=== PATIENT | female | born 1960 | race Caucasian/White ===

== ENCOUNTER → 2018-06-11 | Outpatient (CLI) | payer OTHER, SELFPAY ==
--- NOTE | 2018-06-11 14:02 | BD_ITS ---
STUDY: DUAL ENERGY X-RAY ABSORPTIOMETRY / DXA REASON FOR EXAM: Female, 57 years old. The patient is postmenopausal. Loss of height. TECHNIQUE: Bone Mineral Density (BMD) measurements of lumbar spine and bilateral hips were obtained. COMPARISON: Comparison is made with prior examination dated April 02, 2013. FINDINGS: Lumbar Spine (L1-L4): g/cm2 (0.749) / T-score (-3.8) / Z-score (-2.6) Findings are suggestive of osteoporosis with a high fracture risk. Increased thoracic kyphosis. Left Femur Total: g/cm2 (0.855) / T-score (-1.2) / Z-score (-0.3) Left Femoral Neck: g/cm2 (0.787) / T-score (-1.8) / Z-score (-0.6) Right Femur Total: g/cm2 (0.773) / T-score (-1.9) / Z-score (-1.0) Right Femoral Neck: g/cm2 (0.761) / T-score (-2.0) / Z-score (-0.8) The T-Scores on the most recent prior examination were: Lumbar Spine (L1-L4): There has been improvement of bone density since the previous examination. Left Femur Total: which represents an improvement of 7.8%. Right Femur Total: which represents no significant change. . BD/Dexa Bone Density Study IMPRESSION: The patient is considered osteoporotic as outlined below according to World Devyn Organization (WHO) criteria with a high fracture risk. There has been improvement of bone density since the previous examination. Reference Information: The T-score is the number of standard deviations above or below the standard which is normal for young adults at their peak bone mineral density. The World Health Organization (WHO) interprets the T-scores as follows: Above -1 Normal bone density Between -1 and -2.5 Osteopenia Equal to / or below -2.5 Osteoporosis As a practical clinical guideline, osteopenia may be graded as follows: Mild -1 through -1.5 Moderate -1.6 through -2.0 Severe -2.1 through -2.4 The Z-score is the number of standard deviations above or below age-matched controls. A Z-score of less than -1.5 would be considered abnormal. References: 1. NIH Osteoporosis and Related Bone Diseases http://www.osteo.org 2. International Society for Clinical Densitometry http://www.iscd.org 3. National Osteoporosis Foundation http://www.nof.org Electronically Signed: Adebayo Card, at 14:51 EDT , Service support ,
== END | disposition home or self-care (01) ==
PROVIDERS: Family Provider Family Medicine; PCP Family Medicine; Referring Provider Family Medicine; Visit Provider Family Medicine
DX: M81.0 Age-related osteoporosis without current pathological fracture (principal)
CPT/HCPCS: 77080

== ENCOUNTER → 2018-06-28 | Outpatient (CLI) | payer OTHER, SELFPAY ==
--- NOTE | 2018-06-28 14:34 | BI_ITS ---
MAMMOGRAPHY - BILATERAL SCREENING REASON FOR EXAM: Female, 57 years old. Routine annual screening examination. PERTINENT HISTORY: Mother with breast cancer. TECHNIQUE: Digital bilateral breast murray (3D mammographic acquisition) in the CC and MLO projections. 2-D mediolateral oblique (MLO) and craniocaudad (CC) views of both breasts were obtained. CAD: Full Field Digital Mammography with Computer Added Detection was performed. COMPARISON: Comparison is made with prior study dated April 02, 2013. FINDINGS: Breast Composition: The breasts are heterogeneously dense, which may obscure small masses. There are no dominant masses or suspicious calcifications. No other significant abnormalities are identified. There has been no significant change since the prior study. BI/SCREENING MAMM (CAD), BILAT IMPRESSION: Stable bilateral screening mammogram. Yearly follow-up mammogram recommended. (A) ASSESSMENT CATEGORY: BIRADS Category 1: Negative. A letter regarding these results will be sent to the patient by the facility within 30 days. Approximately 10% of breast cancers are not detected by mammography. A normal mammogram should not delay biopsy of a clinically suspicious abnormality. [id number] Electronically Signed: Adebayo Card, at 8:26 EDT , Service support ,
== END | disposition home or self-care (01) ==
LOC: OPBI 14:32
PROVIDERS: Family Provider Family Medicine; PCP Family Medicine; Referring Provider Family Medicine; Visit Provider Family Medicine
DX: Z12.31 Encounter for screening mammogram for malignant neoplasm of breast (principal)
CPT/HCPCS: 77063; 77067

== ENCOUNTER → 2019-04-18 13:59 | Outpatient (CLI) | payer OTHER, SELFPAY ==
[2019-04-22 17:14] LABS: HPV APTIMA, High Risk Negative (Negative)
== END ==
PROVIDERS: PCP Family Medicine; Visit Provider Obstetrics & Gynecology
DX: Z12.4 Encounter for screening for malignant neoplasm of cervix (principal)
CPT/HCPCS: 87624; 88175; G0145

== ENCOUNTER 2019-11-14 09:00 | Outpatient (RCR) | payer OTHER, SELFPAY ==
[2019-10-21 15:09] VITALS: BMI 23.0
--- NOTE | 2019-11-03 08:29 | HP.PTEVAL_ITS ---
Patient's Visit Information ISRA JAVED is a 58 year old F referred to Physical Therapy by Dr. Thelma Raymundo DC with a diagnosis of Pain in Thoracic spine Wedge compression fx T9- T10. Date of Evaluation: 10/28/19 Physical Therapist: Gabe Zavala DPT - Visit Plan Frequency: 1-2x /Week Duration: 4 Weeks Plan: Start with DN to levator scap, L UT, L mid trap, L lats and L pec minor. Add in levator scap stretching, scpaular strengthening/re education exercises. - Subjective Pt. is here today for her initial evaluation with diagnosis of Pain in thoracic spine, wedge compression fx of T9-T10. Pt. has been complaining of increased pain in L shoulder when she moves her arm certain ways, ie lifting away from her body while laying in bed on her R side. Pt. reports reaching behind her is painful as well. Pt. did see the chiropractor who was able to do some adjustments, but felt like Dry needling might be appropriate to her levator scapulae musculature. Pt. appears to be most concerned about her L shoulder/arm pain. She denies N/T, but does have some pain that radiates to lateral proximal arm. Pt. reports no weakness, but it like catches when I move is certain ways. Pt. reports no mech of injury and has been having pain for a few months now, but has become more intense recently. Pt. is hopeful to reduce her symptoms in order to complete all daily and recreational activities without limitations. - Pain L side of thoracic spine Pain Intensity (Out of 10): 2 Pain Intensity Range: 0, 4 L shoulder Pain Intensity (Out of 10): 2 Pain Intensity Range: 0, 4 L scapular region Pain Intensity (Out of 10): 2 Pain Intensity Range: 0, 4 - Objective POSTURE: Pt. has sligth rounded thoracic spine. Sligth FH posture. Pt. is able to correct with VC/TCing. PALPATION: Pt. has tenderness along mid boarder to L scapulea, L levator, L UT. No pain at subacromial space. No pain throughout cervical spine. NEURO: pt. has normal sensation and normal DTR of BUEs. ROM: CERVICAL SPINE: full ROM without increase in symptoms. L shoulder- flexion- full no issues, abd full no issues, functional ER/IR full no issues. Pt. did have incresed pain with extension and abduction (increased scapular adduction). MMT: Pt. had good strength throughout BUEs, except pain and mild weakness 4/5 with supraspinatus. 5/5 cervical iso. - Special Tests C/S Radiculapathy - Left Spurlings: Negative C/S Radiculapathy - Right Spurlings: Negative C/S Radiculapathy - Left Cervical distraction: Negative C/S Radiculapathy - Right Cervical distraction: Negative C/S Radiculapathy - Left Relief test: Negative C/S Radiculapathy - Right Relief test: Negative Cervical Sitting: Protrusion - Mechanical Response: No effect Cervical Sitting: Protrusion - Symptoms During Testing: No effect Cervical Sitting: Protrusion - Symptoms After Testing: No effect Cervical Sitting: Retraction - Mechanical Response: No effect Cervical Sitting: Retraction - Symptoms During Testing: No effect Cervical Sitting: Retraction - Symptoms After Testing: No effect Cervical Sitting: Retraction-Extension - Mechanical Response: No effect Cerv Sitting: Retraction-Extension - Symptoms During Testing: No effect Cerv Sitting: Retraction-Extension - Symptoms After Testing: No effect Cervical Sitting: Sidebend Right - Mechanical Response: No effect Cervical Sitting: Sidebend Right - Symptoms During Testing: No effect Cervical Sitting: Sidebend Right - Symptoms After Testing: No effect Cervical Sitting: Sidebend Left - Mechanical Response: No effect Cervical Sitting: Sidebend Left - Symptoms During Testing: No effect Cervical Sitting: Sidebend Left - Symptoms After Testing: No effect Cervical Sitting: Rotation Right - Mechanical Response: No effect Cervical Sitting: Rotation Right - Symptoms During Testing: No effect Cervical Sitting: Rotation Right - Symptoms After Testing: No effect Cervical Sitting: Rotation Left - Mechanical Response: No effect Cervical Sitting: Rotation Left - Symptoms During Testing: No effect Cervical Sitting: Rotation Left - Symptoms After Testing: No effect Cervical Sitting: Flexion - Mechanical Response: No effect Cervical Sitting: Flexion - Symptoms During Testing: No effect Cervical Sitting: Flexion - Symptoms After Testing: No effect Thoracic Sitting: Flexion - Mechanical Response: No effect Thoracic Sitting: Flexion - Symptoms During Testing: No effect Thoracic Sitting: Flexion - Symptoms After Testing: No effect Thoracic Sitting: Extension - Mechanical Response: No effect Thoracic Sitting: Extension - Symptoms During Testing: Increases Thoracic Sitting: Extension - Symptoms After Testing: No worse Thoracic Sitting: Right Rotation - Symptoms During Testing: No effect Thoracic Sitting: Right Rotation - Symptoms After Testing: No effect Thoracic Sitting: Left rotation - Mechanical Response: No effect Thoracic Sitting: Left Rotation - Symptoms During Testing: No effect Thoracic Sitting: Left Rotation - Symptoms After Testing: No effect L Shoulder Supine Impingement Test - RC Tear: Negative L Shoulder Lift Off Test - Subscapular Tear: Negative L Shoulder Drop Sign - IS Test: Negative L Shoulder Empty Can - SS: Positive L Shoulder Belly Press - SupScap: Negative L Shoulder Neer - Impingement: Negative L Shoulder Carrero Javier - Impingement: Negative L Shoulder Biceps Load Test - Labrum: Negative - Goals Goal 1:: LTG: Pt. to be I with HEP. Goal Time Frame: 4-6 Weeks Goal 2:: STG: Pt. to sleep on R side and be able to move L arm without increase in symptoms. Goal Time Frame: 2-4 Weeks Goal 3:: LTG: Pt. to have increased L supraspinatus strength increased to 5/5. Goal Time Frame: 4-6 Weeks Goal 4:: STG: Pt. to have no pain at rest. Goal Time Frame: 2-4 Weeks - Rehabilitation Potential Physical Therapy Diagnosis: Pt. has signs and symptoms consistent with scapular region pain. Pt. has pain/tightness noted throughout levator scapulea, mid trap and upper trap. Pt. also has tightness with her L lat and pec minor. Pt. did have marked trigger point/muscle spasm at levator scapulea at well. Pt. would benefit from PT with DN to focus on scpaular mobility, tissue tension reduction and scapular strenthening/re education. Rehabilitation Potential: Good - Anticipated Interventions Patient/Client Instruction: Educate patient on: Condition, Plan of Care, Risk Factors, Benefits of Fitness Program For the Purpose of:: To improve decision making, To facilitate caregiver knowledge, To improve self management, To prevent re-injury, To improve ability to perform tasks related to life management, To improve tolerance to ADL's Therapeutic Exercise to Include: Strength training, Power training, Postural training, Flexibilty training, via [employer] Balance Mas, Active ROM, Scapular Strength/Stabilization For the Purpose of:: To decrease pain, To decrease swelling/inflammation, To increase ROM, To improve nutrient delivery to tissue, To increase oxygenation perfusion, To improve muscle performance and motor function, To improve ability to perform ADL's, To increase tolerance to activity/condition/position Manual Therapy Techniques to Include: Mobilization, Manipulation, Passive ROM, Functional dry needling, Soft tissue mobilization For the Purpose of:: To decrease pain, To decrease swelling/inflammation, To increase ROM, To improve nutrient delivery to tissue, To increase oxygenation perfusion, To improve muscle performance and motor function Thank you for the opportunity to evaluate your patient. For Medicare and Medicare HMO plans, please review the plan of care and approve it. It will need to be FAXED BACK to us at [phone] for Medicare purposes. For Medicare only, by signing this I certify the plan of care. Please let me know if there are questions or concerns regarding this plan of care. Physician Signature: Date:
== END 2019-11-14 19:00 | disposition home or self-care (01) ==
LOC: PT 09:00
PROVIDERS: PCP Family Medicine; Referring Provider Chiropractor; Visit Provider Chiropractor
DX: M99.02 Segmental and somatic dysfunction of thoracic region (principal); S22.070D Wedge compression fracture of T9-T10 vertebra, subsequent encounter for fracture with routine healing
CPT/HCPCS: 97110; 97140; 97161

== ENCOUNTER → 2019-11-25 13:39 | Outpatient (CLI) | payer OTHER, SELFPAY ==
[2019-10-21 15:09] VITALS: BMI 23.0
== END ==
PROVIDERS: PCP Family Medicine; Referring Provider Family Medicine; Visit Provider Nurse Practitioner Adult Health
DX: Z20.828 Contact with and (suspected) exposure to other viral communicable diseases (principal)
CPT/HCPCS: 87635; U0003

== ENCOUNTER → 2020-02-19 08:11 | Outpatient (CLI) | payer OTHER, SELFPAY ==
[2019-10-21 15:09] VITALS: BMI 23.0
--- NOTE | 2020-02-19 08:13 | BI_ITS ---
MAMMOGRAPHY - BILATERAL SCREENING REASON FOR EXAM: Female, 59 years old. Routine annual screening examination. PERTINENT HISTORY: Mother with breast cancer. TECHNIQUE: Digital bilateral breast lorraine (3D mammographic acquisition) in the CC and MLO projections. 2-D mediolateral oblique (MLO) and craniocaudad (CC) views of both breasts were obtained. CAD: Full Field Digital Mammography with Computer Added Detection was performed. COMPARISON: Comparison is made with prior study dated 06/28/2018 and 04/02/2013. FINDINGS: Breast Composition: The breasts are heterogeneously dense, which may obscure small masses. There are no dominant masses or suspicious calcifications. Stable small benign-appearing bilateral axillary lymph nodes. No other significant abnormalities are identified. There has been no significant change since the prior study. BI/SCREEN MAMM (CAD) W/LORRAINE BILAT IMPRESSION: Stable bilateral screening mammogram. Yearly follow-up mammogram recommended. (A) ASSESSMENT CATEGORY: BIRADS Category 2: Benign. A letter regarding these results will be sent to the patient by the facility within 30 days. Approximately 10% of breast cancers are not detected by mammography. A normal mammogram should not delay biopsy of a clinically suspicious abnormality. [id number] Electronically Signed: Adebayo Card, at 9:14 EST , Service support ,
== END ==
PROVIDERS: PCP Family Medicine; Referring Provider Obstetrics & Gynecology; Visit Provider Obstetrics & Gynecology
DX: Z12.31 Encounter for screening mammogram for malignant neoplasm of breast (principal)
CPT/HCPCS: 77063; 77067

== ENCOUNTER 2021-06-13 16:00 | Outpatient (RCR) | payer OTHER, SELFPAY ==
--- NOTE | 2021-05-18 12:00 | HP.PTEVAL ---
Patient's Visit Information ISRA JAVED is a 60 year old F referred to Physical Therapy by RAMO ARAUJO with a diagnosis of L shoulder calcific tendonitis.. Date of Evaluation: 05/18/21 Physical Therapist: Floyd Yusuf, DPT, OCS, CSCS - Visit Plan Frequency: 3x /Week Duration: 4-6 Weeks Plan: 3x/week for 3-6 weeks for. 1. US nonthermal L supra insert. 2. mobs arm traction for pain. 3. ensure strengthening going wella t home(phase 3 given today with activitiy modification for impingement). 4. Do ionto with acetic acid each session -please - Subjective Lshoulder pain for 5 years consistently and worsening. X rays show calcification in tendon(supraspinatus). Doctor recommended shockwave therapy and microsurgery. Advil one time per week. Seeing doctor Breanne. Has had therapy in the past and does exercise for strengthening. It hurts with certain movements like reaching OH to take shirt off. Behind back is good and out to side is good. Lifting arm up front with thumb down hurts. Reaching out in front hurts. Painfree at rest. Sleeping will wake her up if she rolls L side or right side. 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 [place]ies [place] farm, Able to do most things on farm with modifications and care. - Pain L shoulder Pain Intensity (Out of 10): 0 Pain Intensity Range: 0, 8 - Objective Walks and trasnfers I without evidence of pain. Full neck ROM without pain, - c/s compression test. Tender to palpation with L supra insert moderately. Full UE AROM B and only some discomfort with thumb down flexion L. ER/IR are not painful and full on L. + HK, + neer, - drop arm, - ext rotation lag test. reflexes 2/3 bi and tri. Sensation UE WNL to gross light touch. Strength is 4/5 B UE except L ER and empty can which are 4- and some slight pain. Posture is forward head and protracted scap B. - Balance/Special Test Scores Quick DASH Score: 13.6350 - Goals Goal 1:: Patient feel pain 80% improved to 1/10 at worst. Goal Time Frame: 4-6 Weeks Goal 2:: Able to empty can and resist ext rot L without pain Goal Time Frame: 4-6 Weeks Goal 3:: Quickdash score 12 or better Goal Time Frame: 4-6 Weeks - Rehabilitation Potential Physical Therapy Diagnosis: L shoulder clacific tendoinits Rehabilitation Potential: Fair - Anticipated Interventions Patient/Client Instruction: Educate patient on: Condition, Plan of Care For the Purpose of:: To decrease pain, To decrease swelling/inflammation, To improve muscle performance and motor function, To increase tolerance to activity/condition/position Therapeutic Exercise to Include: Strength training, Postural training For the Purpose of:: To decrease pain, To improve muscle performance and motor function Manual Therapy Techniques to Include: Mobilization, Soft tissue mobilization For the Purpose of:: To decrease pain, To increase oxygenation perfusion Iontophoresis (with Dexamethozone, with Acetic acid): Yes - acetic acid For the Purpose of:: To decrease pain, To decrease swelling/inflammation Thank you for the opportunity to evaluate your patient. For Medicare and Medicare HMO plans, please review the plan of care and approve it. It will need to be FAXED BACK to us at [phone] for Medicare purposes. For Medicare only, by signing this I certify the plan of care. Please let me know if there are questions or concerns regarding this plan of care. Physician Signature: Date:
--- NOTE | 2021-06-13 16:17 | HP.PTDCSUM ---
It has been my pleasure to treat ISRA JAVED referred by RAMO ARAUJO, with the diagnosis of L shoulder calcific tendonitis. for a total of 11 visit(s). Discharge Date: Please see the following information for a summary of their discharge status. Subjective: Patient reports that she feels that her shoulder is 70% better. She does not have a constant pain and it doesn't consistently wake her up at night. L shoulder Pain Intensity (Out of 10): 0 % Improvement: 70 Objective/Function: Posture: good throughout treatment session- mild winging of the scapula. Gait: no deviation noted- good arm swing and trunk rotation. Palpation: not tender to touch. ROM: WFL in all planes no pain at end ranges- does report stuck with abduction return to neutral. Strength is 4+/5 B UE Goal 1:: Patient feel pain 80% improved to 1/10 at worst. Goal Progress: Progressing Goal 2:: Able to empty can and resist ext rot L without pain Goal Progress: Goal Met Goal 3:: Quickdash score 12 or better Goal Progress: Goal Met Plan: Discharge to [facility] If there are questions or concerns regarding this patient's physical therapy, please feel free to call me at [phone]. Thank you for the referral of this patient. Sincerely, Kiera Carson, LEIGHT Balance/Gait/Functional tests - Balance/Special Test Scores Quick DASH Score: 6.8175
== END 2021-06-13 19:00 | disposition home or self-care (01) ==
LOC: PT 16:00
PROVIDERS: PCP Family Medicine
DX: M75.32 Calcific tendinitis of left shoulder (principal)
CPT/HCPCS: 97035; 97110; 97161; 97164

== ENCOUNTER → 2022-07-28 | Outpatient (CLI) | payer OTHER, SELFPAY ==
[2022-07-28 17:57] LABS: Absolute Lymphocyte Count 1.08 X10^3/uL (0.83-4.51); Absolute Neutrophil Count 4.2 X10^3/uL (2.0-7.7); Basophil# 0.05 X10^3/uL; Basophil% 0.9 % (0-1); Eosinophil# 0.09 X10^3/uL; Eosinophils% 1.5 % (0-5); Hematocrit 40.4 % (37-47); Hemoglobin 13.1 g/dL (12.0-15.0); Lymphocyte # 1.08 X10^3/ul (0.83-4.51); Lymphocyte % 18.5 % (19-41); Mean Corp Hgb Conc 32.4 g/dL (32-36); Mean Corpuscular Hgb 30.4 pg (27.0-32.0); Mean Corpuscular Volume 93.7 fL (81-99); Mean Platelet Vol. 10.5 fl (6.2-12.0); Monocyte% 6.8 % (0-10); NRBC Flagged by Analyzer 0 % (0-5); Neutrophil # 4.22 X10^3/uL (2.7-7.7); Neutrophil % 72.1 % (47-70); Platelet Count 257 K/mm3 (150-450); RBC Distribution Width CV 12.7 % (11.6-14.6); Red Blood Count 4.31 M/mm3 (4.2-5.4); White Blood Count 5.9 K/mm3 (4.4-11.0)
[2022-07-28 18:42] LABS: Anion Gap 6 (5-15); BUN 19 mg/dL (7-18); BUN/Creat Ratio 28.8 RATIO (10-20); Calcium,Total 9.1 mg/dL (8.5-10.1); Chloride 106 mmol/L (98-107); Creatinine, Serum 0.66 mg/dL (0.55-1.02); EST Glomerular Filtration Rate 96 mL/min (>60); Est Glom Filt Rate - Afr Amer 116 mL/min (>60); Glucose 97 mg/dL (74-106); Potassium 4.4 mmol/L (3.5-5.1); Sodium Level 141 mmol/L (136-145); Thyroid Stim Hormone (TSH) 2.13 uIU/mL (0.358-3.74)
== END | disposition home or self-care (01) ==
LOC: MFPLAB 15:46
PROVIDERS: PCP Family Medicine; Visit Provider Family Medicine
DX: R53.83 Other fatigue (principal)
CPT/HCPCS: 36415; 80048; 84443; 85025

== ENCOUNTER → 2023-01-22 | Outpatient (CLI) | payer OTHER, SELFPAY ==
--- NOTE | 2023-01-22 13:31 | RAD_ITS ---
STUDY: X-RAY - RIGHT KNEE REASON FOR EXAM: Female, 62 years old. Pain following a recent injury. TECHNIQUE: 3 view(s) of the knee. COMPARISON: None. FINDINGS: Normal visualized distal femur. Normal visualized proximal tibia and fibula. Normal proximal tibiofibular articulation. Normal medial femorotibial compartment. Normal lateral femorotibial compartment. Normal patellofemoral articulation. The soft tissue structures are unremarkable. RAD/Knee 3 Views IMPRESSION: Normal x-ray examination of the knee. Electronically Signed: Adebayo Card MD at 13:44 EST ,
== END | disposition home or self-care (01) ==
LOC: MTRAD 13:30
PROVIDERS: PCP Family Medicine; Referring Provider Physician Assistant; Visit Provider Physician Assistant
DX: T14.90XA Injury, unspecified, initial encounter (principal)
CPT/HCPCS: 73562

== ENCOUNTER 2023-01-25 09:31 | Outpatient (RCR) | payer OTHER, SELFPAY | END 2023-01-25 19:00 | disposition home or self-care (01) | LOC: PT 09:31 | PROVIDERS: PCP Family Medicine; Referring Provider Physician Assistant; Visit Provider Physician Assistant | DX: S83.91XD Sprain of unspecified site of right knee, subsequent encounter (principal) ==

== ENCOUNTER → 2023-08-29 | Outpatient (CLI) | payer OTHER, SELFPAY ==
[2023-08-31 15:09] LABS: Lyme Scn Total Ab w/Rflx Negative (Negative)
== END | disposition home or self-care (01) ==
LOC: MFPLAB 14:47
PROVIDERS: PCP Family Medicine; Visit Provider Family Medicine
DX: B99.9 Unspecified infectious disease (principal)
CPT/HCPCS: 36415; 86618

== ENCOUNTER → 2024-08-18 | Outpatient (CLI) | payer OTHER, SELFPAY | END | disposition home or self-care (01) | PROVIDERS: PCP Family Medicine; Referring Provider Physician Assistant Medical; Visit Provider Physician Assistant Medical | DX: R82.90 Unspecified abnormal findings in urine (principal) | CPT/HCPCS: 87086; 87088 ==

== ENCOUNTER → 2024-09-04 | Outpatient (CLI) | payer OTHER, SELFPAY | END | disposition home or self-care (01) | LOC: LABSPEC 08:53 | PROVIDERS: PCP Family Medicine; Referring Provider Physician Assistant Surgical; Visit Provider Physician Assistant Surgical | DX: R35.0 Frequency of micturition (principal) | CPT/HCPCS: 87086; 87088; 87186 ==

== ENCOUNTER 2025-01-27 08:18 | Emergency (ER) | payer OTHER, SELFPAY ==
[2025-01-27 08:18] VITALS: BP 130/77; PULSE 65; RESP 17; TEMP 36.4; O2SAT 100; BMI 24.2
--- NOTE | 2025-01-27 08:40 | EKG12_ITS ---
Test Reason : DIZZY Blood Pressure : */* mmHG Vent. Rate : 62 BPM Atrial Rate : 62 BPM P-R Int : 110 ms QRS Dur : 80 ms QT Int : 418 ms P-R-T Axes : 50 79 52 degrees QTcB Int : 424 ms Sinus rhythm with short GA Otherwise normal ECG Confirmed by Dave Martinez ([id number]), newspaper managing editor JEAN HOUSE ([id number]) on 01/28/2025 10:20:47 AM Referred By: Confirmed By: Dave Martinez
--- NOTE | 2025-01-27 08:40 | RAD_ITS ---
PROCEDURE: CHEST PA AND LATERAL 01/27/2025 REASON FOR EXAM: CHEST PAIN TECHNIQUE: Procedure Code: RADCXR Modality: DX Procedure: CHEST PA AND LATERAL COMPARISON: None FINDINGS: Heart size and mediastinal configuration are within normal limits there is no focal infiltrate or consolidation. There is no pneumothorax or effusion. Aortic calcifications are noted. There is a 50% anterior compression deformity at T10. RAD/Chest PA and Lateral IMPRESSION: No acute process is identified in the chest. There is a 50% anterior compression deformity at T10. MRI or bone scan could b e helpful to determine chronicity if clinically indicated. Reading Location: [facility]
--- NOTE | 2025-01-27 08:41 | CT_ITS ---
PROCEDURE: BRAIN/HEAD WITHOUT CONTRAST 01/27/2025 REASON FOR EXAM: Clinical history of dizziness. TECHNIQUE: Procedure Code: CTBR Modality: CT Procedure: BRAIN/HEAD WITHOUT CONTRAST Coronal and Sagittal reconstruction series were provided. One or more dose reduction techniques were used (e.g., Automated exposure control, adjustment of the mA and/or kV according to patient size, use of iterative reconstruction technique. RADIATION DOSE SUMMARY: DLP: 779.24 mGycm COMPARISON: None available. FINDINGS: No acute hemorrhage. No acute infarct. No significant mass effect or brain herniation. The ventricular system and sulci/fissures are within normal limits of size and configuration for the patient's stated age. No extra-axial fluid collection. Nonspecific punctate calcification near the inferior vermis. The basal cisterns are patent. The mastoid air cells are clear. The paranasal sinuses are predominantly clear. Right nasal septal deviation and nasal spur. The calvarium appears intact. CT/Brain/Head without Contrast IMPRESSION: No CT evidence of acute intracranial hemorrhage, infarct, or significant mass e ffect. Reading Location: [id number]
--- NOTE | 2025-01-27 08:41 | EDS_ITS ---
HPI History of Present Illness Chief Complaint: Dizziness Detail of Chief Complaint: Near syncope Informant: patient and spouse/S.O. Onset/Context/Timing Onset: Today Context: Sudden Onset Timing: Intermittent Current Severity: Gone Maximum Severity: Moderate Narrative Narrative: 64-year-old female no significant past medical history currently on no medications. She was working in her garage this morning. She kind of felt dizziness come on. Which she describes as lightheaded and fell like she might pass out. This occurred around 745 and lasted the close to 820 or so. She never passed out. She had no headache. No chest pain. No shortness of breath. No abdominal pain no recent illness. Denies any vomiting or diarrhea. She did have mild nausea. No recent illness or hospitalization. She is feeling better currently. Prior similar symptoms: No Recent Illness/Hospitalization: No PFSH PFSH Medical History Right knee sprain Right foot sprain Right ankle sprain History of Elbow Fracture History of humerus fracture History of compression fracture of vertebral column Medical History unable to obtain Allergy/AdvReac Type Severity Reaction Status Date / Time No Known Allergies Allergy Verified 01/27/25 08:22 Family History no significant family his Surgical History History of thyroidectomy, subtotal History of surgical repair of Humerus Surgical History no surgical history Social History Smoking Status: Never smoker what type of physical activity do you participate in: yoga frequency: 3-4 times per week ROS ROS ED ROS Narrative Denies recent illness. Constitutional Constitutional ED: Denies chills or fever(s) Eyes Eyes: Denies blurry vision ENT ENT ED: Denies ear pain Cardiovascular Cardiovascular: Denies chest pain Respiratory/Chest Respiratory/Chest: Denies cough Gastrointestinal Gastrointestinal: Reports nausea and other Details: Transient nausea today resolved ; Denies abdominal pain, constipation or vomiting Genitourinary Genitourinary ED: Denies dysuria or hematuria Musculoskeletal Musculoskeletal: Denies arthralgias Integumentary Denies abscess Neurologic Neurologic: Denies headache(s) Psychiatric Psychiatric: Denies anxiety Endocrine Endocrinology: Denies cold intolerance Hematologic/Lymphatic Hematologic/Lymphatic: Reports none Allergic/Immunologic Allergic/Immunologic ED: Denies mouth swelling, tongue swelling or urticaria EXAM Physical Exam Narrative Exam Narrative: 64-year-old female sitting upright in bed. Vital signs are stable afebrile. Pulse ox 100% on room air no signs of hypoxia. at bedside. H EENT exam pupils round react light. Moist mucous membranes. Neck nontender no JVD. No lymphadenopathy. Back nontender. Lungs clear to auscultation bilaterally. Heart regular rate and rhythm no murmur rate about 65. Chest wall ribs nontender. Abdomen soft nontender. No peritoneal signs. Moving all 4 extremities. 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 Normal dorsi plantarflexion. Nontender no edema. Neurologically she is awake alert. Answering questions following commands. Has a very benign exam. NIH is 0. Const Vital Signs: 01/27/25 08:18 01/27/25 08:46 01/27/25 09:27 Temperature 97.5 F L Temperature Source Oral Pulse Rate 65 57 L Pulse Rate [Lying] 57 L Pulse Rate [Sitting (for 1 minute prior to obtaining)] 63 Pulse Rate [Standing (for 1 minute prior to obtaining)] 65 Respiratory Rate 17 17 Blood Pressure 130/77 H 109/83 H Blood Pressure [Lying] 115/81 H Blood Pressure [Sitting (for 1 minute prior to obtaining)] 120/65 Blood Pressure [Standing (for 1 minute prior to obtaining)] 106/71 Blood Pressure Mean 94 91 Blood Pressure Mean [Lying] 92 Blood Pressure Mean [Sitting (for 1 minute prior to obtaining)] 83 Blood Pressure Mean [Standing (for 1 minute prior to obtaining)] 82 Pulse Ox 100 99 Oxygen Delivery Method Room Air Room Air MDM MDM MDM Narrative Medical decision making narrative: Well-appearing healthy 64-year-old with a near syncopal episode today. Currently exam is benign. Clinically I do not think this is a stroke or mini stroke. Sounds more like near syncope she had no cardiac history and currently is normal EKG. Her exam is completely unremarkable. Screening labs will be obtained orthostatic vital signs she will be ambulated. Repeat exam patient is doing well around 10 AM. She ambulated without any difficulty. She had negative orthostatic vital signs or labs, chest x-ray and E KG were unremarkable. Patient had a near syncopal event of uncertain etiology. Her exam is normal both now and when she initially presented. Should be discharged home with outpatient follow-up with her primary care physician. She and her are comfortable the plan we went over all her test results. History & Record Review Discussion w/independent historian: Patient and Family Additional record(s) reviewed:: Prior outpatient record, Prior ED visit and Prior labs Lab Data Attestation: I reviewed the patient's lab results. Lab results narrative: Orthostatic vital signs were negative. CBC normal. White count of 5. H&H 13 and 41. Platelets 267. Chemistries show a gap of 13. BUN and creatinine of 19 and 0.7. Glucose 126. Troponin 6. Labs: Laboratory Results - last 24 hr 01/27/25 08:26 WBC 5.8 RBC 4.54 Hgb 13.9 Hct 41.9 MCV 92.3 MCH 30.6 MCHC 33.2 RDW Std Deviation 43.2 RDW Coeff of Tita 12.7 Plt Count 267 MPV 10.2 Immature Gran % (Auto) 0.200 Neut % (Auto) 65.6 Lymph % (Auto) 25.2 [place] % (Auto) 7.1 Eos % (Auto) 1.2 Baso % (Auto) 0.7 Absolute Neuts (auto) 3.8 Absolute Lymphs (auto) 1.45 Nucleated RBC % 0 Sodium 140 Potassium 3.8 Chloride 103 Carbon Dioxide 24.0 Anion Gap 13 BUN 19 Creatinine 0.77 Estim Creat Clear Calc 56.70 Est GFR (MDRD) Non-Af 85 BUN/Creatinine Ratio 24.3 H Glucose 126 H Calcium 9.3 Troponin T High Sens 6 Radiography Chest X-Ray - ED: 2 View, Read by ED Physician, Read by Radiologist, Heart, Lungs, Mediastinum, Bony Structures (T10 compression fracture.), No Acute Disease and Chronic Changes Diagnostic Testing: Clinical Impression(s) from Imaging Studies Chest X-Ray 01/27/25 08:40 IMPRESSION: No acute process is identified in the chest. There is a 50% anterior compression deformity at T10. MRI or bone scan could be helpful to determine chronicity if clinically indicated. Reading Location: [facility] 01/27/25 08:41 IMPRESSION: No CT evidence of acute intracranial hemorrhage, infarct, or significant mass effect. Reading Location: [facility] Chest x-ray, 2 views, AP and lateral, interpreted by myself and radiologist. Shows normal cardiac silhouette. Normal lung rehman. T10 compression fracture. No pneumonia. No effusions. Rhythm Strip Rhythm Strip: Sinus Rhythm Rate: 62 Ectopy: None EKG Initial EKG: Interpretation: Sinus Rhythm and No Acute Injury Pattern Comments: Normal sinus rhythm rate of 62 no acute signs of DC nor ischemia nor dysrhythmia. Prior EKG tracings: available for review Prior: Unchanged Discharge Plan Triage Chief Complaint: Dizziness ED Provider: Álvaro Bocanegra Dx/Rx/DC Orders Clinical Impression: Near syncope, History of hypertension Instructions: ED Near-Fainting, Uncertain Cause Primary Care Provider: Rainer Palumbo Referrals: Rainer Palumbo MD [Primary Care Provider, [facility]] - 3-5 Days Activity Restrictions/Additional Instructions: Your labs, EKG, CAT scan and chest x-ray all look good. Your exam is unremarkable. We do not have a specific cause. The term for this is near syncope. Follow-up with your primary care physician. Return if you are feeling worse. Print Language: Qatari Disposition Disposition: Home, Self Care
[2025-01-27 08:46] VITALS: BP 106/71; BP 115/81; BP 120/65; PULSE 57; PULSE 63; PULSE 65
[2025-01-27 08:53] LABS: Hematocrit 41.9 % (37-47); Hemoglobin 13.9 g/dL (12.0-15.0); Immature Granulocytes Count 0.010 X10^3/uL (0.0-0.0); Mean Corp Hgb Conc 33.2 g/dL (32-36); Mean Corpuscular Volume 92.3 fL (81-99); Mean Platelet Vol. 10.2 fl (6.2-12.0); NRBC Flagged by Analyzer 0 % (0-5); Platelet Count 267 K/mm3 (150-450); RBC Distribution Width CV 12.7 % (11.6-14.6); RBC Distribution Width SD 43.2 fl (35.1-43.9); Red Blood Count 4.54 M/mm3 (4.2-5.4); White Blood Count 5.8 K/mm3 (4.4-11.0)
[2025-01-27 09:27] VITALS: BP 109/83; PULSE 57; RESP 17; O2SAT 99
[2025-01-27 09:36] LABS: Anion Gap 13 (5-15); BUN 19 mg/dL (4-19); BUN/Creat Ratio 24.3 RATIO (10-20); Calcium,Total 9.3 mg/dL (7.6-11.0); Carbon Dioxide 24.0 mmol/L (21.0-32.0); Chloride 103 mmol/L (98-108); Estimated Creatinine Clearance 56.70 ml/min (50-250); Glucose 126 mg/dL (70-99); Potassium 3.8 mmol/L (3.3-5.1); Troponin T High Sensitivity 6 ng/L (<=14)
[2025-01-27 10:10] VITALS: BP 112/73; PULSE 61; RESP 17; O2SAT 100
[2025-01-27 10:16] VITALS: BP 106/66; PULSE 55; RESP 12; TEMP 36.8; O2SAT 100
--- OUTSIDE RECORDS SUMMARY | 2025-01-27 11:14 | XMS RPT_ITS | CCD ---
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 Rainer Palumbo Primary Care Provider [phone] Deepali, Dr. Spear Referring Provider [phone] Breanne, Dr. Renee Attending Provider [phone] Dr. Rainer Palumbo Primary Care Provider Deepali, Dr. Spear Referring Provider Breanne, Dr. Renee Attending Provider [phone] GURU Price Attending Provider Deepali FIGUEROA, Dr. Spear Primary Care Provider Deepali FIGUEROA, Dr. Spear Referring Provider Dossi DC, Dr. Renee Attending Provider [phone] Deepali FIGUEROA, Dr. Spear Primary Care Provider Deepali FIGUEROA, Dr. Spear Referring Provider Dossi DC, Dr. Renee Attending Provider [phone] Cony Sprague Attending Provider [phone] Cony Sprague Referring Provider Sunny Warner Attending Provider Sunny Warner Referring Provider Thelma Raymundo Attending Unavailable Rainer Palumbo Primary Care Unavailable Rainer Palumbo Referring Unavailable Thelma Raymundo Attending Unavailable Rainer Palumbo Primary Care Unavailable Rainer Palumbo Referring Unavailable Rainer Palumbo Referring Unavailable Rainer Palumbo Primary Care Unavailable Cony Sprague Attending Unavail able Sunny Warner Attending Unavailable Palumbo, Rainer Referring Unavailable Palumbo, Rainer Primary Care Unavailable Dossi, Thelma Attending Unavailable Palumbo, Rainer Primary Care Unavailable Palumbo, Rainer Referring Unavailable Palumbo, Rainer Primary Care Unavailable Lydia GARVEY, Cony Espino Referring Unavail able Lydia GARVEY, Cony M Attending Unavail able Higinio GARVEY, Sunny Referring Unavailable Higinio GARVEY, Sunny Attending Unavailable Palumbo, Rainer Primary Care Unavailable Dossi, Thelma Attending Unavailable Palumbo, Rainer Referring Unavailable Palumbo, Rainer Primary Care Unavailable Dossi, Thelma Attending Unavailable Palumbo, Rainer Primary Care Unavailable Palumbo, Rainer Referring Unavailable Palumbo, Rainer Referring Unavailable Dossi, Thelma Attending Unavailable Palumbo, Rainer Primary Care Unavailable Palumbo, Rainer Referring Unavailable Dossi, Thelma Attending Unavailable Palumbo, Rainer Primary Care Unavailable Palumbo, Rainer Referring Unavailable Dossi, Thelma Attending Unavailable Palumbo, Rainer Primary Care Unavailable Palumbo, Rainer Referring Unavailable Dossi, Thelma Attending Unavailable Palumbo, Rainer Primary Care Unavailable Palumbo, Rainer Referring Unavailable Dossi, Thelma Attending Unavailable Palumbo, Rainer Primary Care Unavailable Medications Current Medications Medication Drug Class(es) Dates Sig (Normalized) Sig (Original) ibandronic acid 150 mg oral tablet (9 sources) Bisphosphonate Start: 07-13-2014 take 1 tablet by mouth every month Ibandronate 150 MG tablet Active 150 mg PO EVERY MONTH July 13, 2014 12:00am sulfamethoxazole 800 mg / trimethoprim 160 mg oral tablet (1 source) Dihydrofolate Reductase Inhibitor Antibacterial, Sulfonamide Antimicrobial Start: 09-04-2024 Sulfamethoxazole -Trimethoprim (Bactrim Ds) 800-160 mg tablet Active 1 {tbl} PO Q12H 14 7 0 September 04, 2024 12:00am September 10, 2024 12:00am Completed/Discontinued Medications Medication Drug Class(es) Dates Sig (Normalized) Sig (Original) acetaminophen 325 mg / oxyCODONE hydrochloride 5 mg oral tablet (9 sources) Opioid Agonist Start: 07-20-2014 End: 12-07-2022 Oxycodone-Acetamino phen 1 TABLET tablet Discontinued 1 - 2 {tbl} PO EVERY 6 HOURS NEEDED as needed for Mod/Severe (pain scale 6-10) 30 0 July 20, 2014 12:00am December 07, 2022 11:13am Start: 07-20-2014 End: 12-07-2022 take 1 tablet by mouth every six hours as needed Oxycodone-Acetaminophen Discontinued 1 - 2 TABLET PO EVERY 6 HOURS NEEDED July 20, 2014 12:00am December 07, 2022 11:13am nitrofurantoin, macrocrystals 25 mg / nitrofurantoin, monohydrate 75 mg oral capsule (4 sources) Nitrofuran Antibacterial Start: 08-18-2024 End: 08-23-2024 take 1 capsule by mouth every twelve hours at mealtime Nitrofurantoin Monohyd/M-Cryst (Macrobid) 100 mg capsule Discontinued 100 mg PO Q12H 10 5 0 August 18, 2024 12:00am August 22, 2024 12:00am August 23, 2024 12:10am must administer with a meal/food Problems Active Problems Problem Classification Problem Date Documented Da te Episodic/Chronic Abdominal pain (1 source) Pelvic and perineal pain; Translations: [Pelvic and perineal pain] Onset: 08-18-2024 Episodic E Codes: Fall (9 sources) Fall from ladder; Translations: [Fall on and from ladder, initial encounter] 02-26-2013 Episodic Genitourinary symptoms and ill-defined conditions (5 sources) Increased frequency of urination; Translations: [Frequency of micturition] Onset: 08-21-2024 09-04-2024 Episodic Other bone disease and musculoskeletal deformities (20 sources) Segmental and somatic dysfunction; Translations: [Segmental and somatic dysfunction of cervical region] 01-15-2020 Episodic Other bone disease and musculoskeletal deformities (14 sources) Segmental and somatic dysfunction of cervical region; Translations: [Nonallopathic lesions, cervical region] Onset: 08-25-2024 Episodic Other bone disease and musculoskeletal deformities (13 sources) Segmental and somatic dysfunction of lumbar region; Translations: [Nonallopathic lesions, lumbar region] Onset: 08-25-2024 Episodic Other bone disease and musculoskeletal deformities (14 sources) Segmental and somatic dysfunction of pelvic region; Translations: [Nonallopathic lesions, pelvic region] Onset: 08-25-2024 Episodic Other bone disease and musculoskeletal deformities (14 sources) Segmental and somatic dysfunction of thoracic region; Translations: [Nonallopathic lesions, thoracic region] Onset: 08-25-2024 Episodic Other fractures (20 sources) Compression fracture of thoracic spine; Translations: [Wedge compression fracture of unspecified thoracic vertebra, initial encounter for closed fracture] 10-14-2019 Episodic Comment on above: T11 Other fractures (10 sources) Wedge compression fracture of unspecified thoracic vertebra, initial encounter for closed fracture; Translations: [Closed fracture of dorsal [thoracic] vertebra without mention of spinal cord injury] Episodic Other fractures (1 source) Wedge compression fracture of T9-T10 vertebra, subsequent encounter for fracture with routine healing; Translations: [Wedge compression fracture of T9-T10 vertebra, subsequent encounter for fracture with routine healing] Onset: 08-25-2024 Episodic Other non-traumatic joint disorders (1 source) Shoulder pain; Translations: [Pain in right shoulder] Episodic Other non-traumatic joint disorders (9 sources) Pain in elbow; Translations: [Pain in right elbow] 02-26-2013 Episodic Other non-traumatic joint disorders (9 sources) Pain in wrist; Translations: [Pain in left wrist] 02-26-2013 Episodic Other non-traumatic joint disorders (8 sources) Pain in right shoulder; Translations: [Right shoulder pain] 02-26-2013 Episodic Spondylosis; intervertebral disc disorders; other back problems (20 sources) Backache; Translations: [Dorsalgia, unspecified] Onset: 10-09-2023 Episodic Sprains and strains (20 sources) Sprain of ankle; Translations: [Sprain of unspecified ligament of right ankle, initial encounter] 10-03-2021 Episodic Urinary tract infections (8 sources) Urinary tract infectious disease; Translations: [Urinary tract infection, site not specified] 08-18-2024 Episodic Past or Other Problems Problem Classification Problem Date Documented Da te Episodic/Chronic Unclassified (8 sources) History of Elbow Fracture 09-03-2021 Unclassified (8 sources) History of surgical repair of Humerus 09-03-2021 Results Test Name Value Interpretation Reference Range Facility Urine Cultureon 09-06-2024 [facility] Presumptive E. coli [place] Count >100,000 Presumptive E. coli: REACTION Ampicillin Islt NGOZI 4 Ampicillin+Sulbac Islt NGOZI <=2 S Cefepime Islt NGOZI <=0.12 S cefTRIAXone Islt NGOZI <=0.25 S Ciprofloxacin Islt NGOZI <=0.06 S B-Lactamase Extended Susc Islt NEG Gentamicin Islt NGOZI <=1 S levoFLOXacin Islt NGOZI <=0.12 S Meropenem Islt NGOZI <=0.25 S Nitrofurantoin Islt NGOZI <=16 S Pip+Tazo Islt NGOZI <=4 S TMP SMX Islt NGOZI <=20 S Normal [facility] Comment on above: Performed By: #### M [id number] #### [facility] [address] [place], [address] Laboratory - Chemistry and C hemistry - challengeOrdered By: Sunny Sylvester on 09-04-2024 Bilirubin Ql (U) Negative [facility] Glucose Ql (U) Negative [facility] Ketones Ql (U) Negative [facility] pH (U) 6.0 [pH] [facility] Specific gravity (U) [Rel density] 1.025 [facility] Urobilinogen (U) [Mass/Vol] Negative [facility] - Hematology and Cell countsOrdered By: Sunny Sylvester on 09-04-2024 Hemoglobin Ql (U) Negative [facility] - Specimen inform ationOrdered By: uSnny Sylvester on 09-04-2024 Clarity (U) Cloudy [facility] Color (U) Yellow [facility] - UrinalysisOrder ed By: Sunny Sylvester on 09-04-2024 Nitrite Ql (U) Positive [facility] Protein Ql (U) Trace [facility] No Panel InformationOrdered By: Sunny Sylvester on 09-04-2024 Urine Leukocytes Positive [facility] Urine Non-Hemolyzed Blood Moderate [facility] Urgent Care Visit Reporton 0 09-04-2024 Urgent Care Visit Report [facility] [address], [address] [place] [address] OFFICE VISIT Date of Service: 09/04/24 MR#: [id number] Acct: [id number] Name: TELLOISRA MONTGOMERY Rep #: [id number] : 1960 Provider: GURU Ball Age/Sex: 63/F Location: [facility] Status: Signed Intake Vital Signs 08/18/24 12:58 09/04/24 08:11 Height 5 ft 1 in BP 110/70 104/60 Blood Pressure Location Lt brachial Lt brachial Position Sitting Sitting Respiration 16 15 Pulse 76 65 Pulse Source Monitor NIBP Temp 98.2 F 98.1 F Temp Source Oral Oral Pulse Oximetry (%) 97 97 Oxygen Delivery Method room air Intake Visit Reasons: CONCERN FOR UTI Chief Complaint: urinary frequency Cra Officer Required: No Is patient in pain?: No Allergies No Known Allergies Allergy (Verified 09/04/24 08:11) Is last menstrual period known: No Post menopausal: Yes Patient : No Have you fallen in the past year?: No Nurse's Note: urinary frequency x 5 days intermittently. recent UTI and only received 5 days of ATB, pt concerned this may be the issue. denies abd pain, back pain, fever. [facility] Medical History Right knee sprain Right foot sprain Right ankle sprain History of Elbow Fracture History of humerus fracture History of compression fracture of vertebral column Surgical History History of thyroidectomy, subtotal History of surgical repair of Humerus Social History Smoking Status: Never smoker what type of physical activity do you participate in: yoga frequency: 3-4 times per week HPI HPI Chief Complaint: urinary frequency Details: ISRA JAVED, is a 63 F who presents to the office today for complaint of increased urinary urgency and frequency. Patient states that this has been ongoing for the past several days. She denies dysuria, hematuria or loss of bowel/bladder control. Patient was here approximately 2 weeks ago and treated for what she thought was a UTI at that time with Macrobid for 5 days. She states that her symptoms did improve from that episode. She denies pelvic or abdominal pain. No fever, chills, sweats. No nausea, vomiting, diarrhea. No other associated symptoms or alleviating/aggrav ating factors. ROS Const Constitutional: Positive for other (ROS negative x 6 except what is described above) Exam Const General: cooperative and healthy appearing Resp Effort Inspection: normal respiratory effort Auscultation: Bilateral: Clear to Auscultation Cardio Rate: regular rate Rhythm: regular rhythm GI Auscultation: normal bowel sounds General: No CVA tenderness Psych Appearance: grossly normal Mental Status: mental status grossly normal Results POC Urinalysis Dip (Clinic) Office Urine Color Yellow Last Edit by Ashley Mojica on 09/04/24 08:15 Office Urine Clarity Cloudy Last Edit by Ashley Mojica on 09/04/24 08:15 Office Urine Glucose Negative Last Edit by Ashley Mojica on 09/04/24 08:15 Office Urine Ketones Negative Last Edit by Ashley Mojica on 09/04/24 08:15 Off Ur Spec Novi 1.025 Last Edit by Ashley Mojica on 09/04/24 08:15 Office Urine pH 6.0 Last Edit by Ashley Mojica on 09/04/24 08:15 Office Urine Bilirubin Negative Last Edit by Ashley Mojica on 09/04/24 08:15 Office Urine Urobilinogen Negative Last Edit by Ashley Mojica on 09/04/24 08:15 Office Urine Blood Negative Last Edit by Ashley Mojica on 09/04/24 08:15 Office Urine Blood Hemolyzed Moderate Last Edit by Ashley Mojica on 09/04/24 08:15 Office Urine Protein Trace Last Edit by Ashley Mojica on 09/04/24 08:15 Office Urine Nitrate Positive Last Edit by Ashley Mojica on 09/04/24 08:15 Off Ur Leukocytes Positive Last Edit by Ashley Mojica on 09/04/24 08:15 Coding Level of Care Code Off vis,est,level 3 Diagnoses Increased urinary frequency R35.0 Assessment and Plan Assessment and Plan (1) Increased urinary frequency: Status: Acute Orders: Orders POC Urinalysis Dip (Clinic) Today R35.0 - Frequency of micturition Culture, Urine Today R35.0 - Frequency of micturition Plan Patient wanted to wait for the urine culture to start any treatment. Encouraged to get plenty of rest, drink lots of clear liquids, and use Tylenol or Ibuprofen (unless contraindicated) for fever and comfort. Patient also educated on other symptomatic management techniques. To be seen in 7-10 days if no improvement; sooner if worsening of symptoms. Patient advised of potential red flags and when appropriate to report to the ED. Patient verbalized understanding and agreement with all the above. Plan Details Goals Barriers: Goals Decrease spasm Decrease trigge (more content not included)... Normal [facility] Urine cultureOrdered By: Teto Sylvester on 09-04-2024 Bacteria identified Cx Nom (U) Presumptive E. coli Abnormal [facility] Urine Cultureon 08-21-2024 [facility] Mixed Gram Pos Gram Neg Org [place] Count 11,000-25,000 MIXC Mixed contaminants. Submit a new specimen if indicated. Normal [facility] Comment on above: Performed By: #### M 100.2200 #### [facility] [address] [place], [address] Laboratory - Chemistry and C hemistry - challengeOrdered By: Cony Freeman on 08-18-2024 Bilirubin Ql (U) Small (1+) [facility] Glucose Ql (U) Negative [facility] Ketones Ql (U) [facility] (15+) [facility] pH (U) 5.0 [pH] [facility] Specific gravity (U) [Rel density] 1.015 [facility] Urobilinogen (U) [Mass/Vol] 0.7146791 mg/dL [facility] - Hematology and Cell countsOrdered By: Cony Freeman on 08-18-2024 Hemoglobin Ql (U) [facility] - Specimen inform ationOrdered By: Cony Freeman on 08-18-2024 Clarity (U) Clear [facility] Color (U) YELLOW [facility] - UrinalysisOrder ed By: Cony Freeman on 08-18-2024 Nitrite Ql (U) Negative [facility] Protein Ql (U) Trace [facility] No Panel InformationOrdered By: Cony Freeman on 08-18-2024 Urine Leukocytes Positive [facility] Office Visit Reporton 2024 Office Visit Report [facility] [address] [place] [address] OFFICE VISIT Date of Service: 08/18/24 MR#: [id number] Acct: [id number] Patient: ISRA JAVED Rep #: [id number] : 1960 Provider: GURU Addison Age/Sex: 63/F Location: [facility] Status: Signed Intake Vital Signs 12/03/23 11:03 08/18/24 12:58 Height 5 ft 1 in 5 ft 1 in BP 110/70 Blood Pressure Location Lt brachial Position Sitting Respiration 16 Pulse 76 Pulse Source Monitor Temp 98.2 F Temp Source Oral Pulse Oximetry (%) 97 Intake Visit Reasons: CONCERN FOR UTI Chief Complaint: Concern for UTI Cra Officer Required: No Accompanied by: Self Is patient in pain?: No Allergies No Known Allergies Allergy (Verified 07/08/24 10:08) Have you fallen in the past year?: No Nurse's Note: complaint of a tingling sensation near bladder before/during urination. Patient concerned for UTI. [facility] Medical History Right knee sprain Right foot sprain Right ankle sprain History of Elbow Fracture History of humerus fracture History of compression fracture of vertebral column Surgical History History of thyroidectomy, subtotal History of surgical repair of Humerus Social History Smoking Status: Never smoker what type of physical activity do you participate in: yoga frequency: 3-4 times per week HPI HPI Chief Complaint: Concern for UTI Details: ISRA JAVED, is a 63 F who presents to the office today for pelvic discomfort. She states that she just has a weird feeling on and off in her pelvic area. She is concerned about a UTI. She does not have any back aches. She does not have any fever or chills. She does not have any burning, itching or foul-smelling urine. She does not have any blood in your urine. She has never had a UTI before. ROS Const Constitutional: Positive for other (ROS negative x 6 except what is described above) Exam Const General: cooperative, healthy appearing and no acute distress Nutritional Appearance: average body habitus Orientation: alert, awake and oriented x3 Resp Effort Inspection: normal respiratory effort and able to speak in complete sentences Cardio Rate: regular rate Pulses: radial pulses present Skin General: no rashes or lesions noted Neuro General: patient alert, patient awake and patient oriented x3 Cognition: normal cognition Speech: speech normal Psych Appearance: grossly normal Mental Status: mental status grossly normal Mood: congruent mood Affect: normal affect Speech and Movement: speech and movement normal Attitude: cooperative Coding Level of Care Code Off vis,est,level 3 Diagnoses UTI (urinary tract infection) N39.0 Assessment and Plan Assessment and Plan (1) UTI (urinary tract infection): Status: Acute Plan: Urine dip is positive. Will send urine out for culture. Will start patient patient on Macrobid. Will call patient back with culture results. Patient advised if not feeling any better she should to contact PCP Orders: Orders POC Urinalysis Dip (Clinic) Today R10.2 - Pelvic and perineal pain Culture, Urine Today R82.90 - Unspecified abnormal findings in urine Medications: New nitrofurantoin monohyd/m-cryst 100 mg (Macrobid) must administer with a meal/food 100 mg PO Q12H 5 days 10 caps 0RF Plan Details Goals Barriers: Goals Decrease spasm Decrease trigger pts Improve ROM Barriers Compression fx Clinical Quality Measures Falls Risk Screening/Assistiv e Devices Have you fallen in the past year?: No 08/18/24 1303 A> Date Cony Persaud Signature: Date (if applicable) CC: Normal [facility] Urine cultureOrdered By: Ngozi Freeman on 08-18-2024 Bacteria identified Cx Nom (U) Mixed Gram Pos & Gram Neg Org Abnormal [facility] Chiropractic Reporton 2024 Chiropractic Report [facility] [place] [address] OFFICE VISIT Date of Service: 07/08/24 MR#: [id number] Acct: [id number] Name: ISRA JAVED Rep #: [id number] : 1960 Provider: JACQUIE Antony Age/Sex: 63/F Location: [facility] Status: Signed Intake Vital Signs 12/03/23 11:03 Height 5 ft 1 in Intake Visit Reasons: Back pain Chief Complaint: neck and low back pain Allergies No Known Allergies Allergy (Verified 07/08/24 10:08) Medications ???Medication ???Instructions ???Recorded ???Confirmed ???Type ibandronate 150 mg tablet 150 mg PO QMONTH 07/13/14 07/08/24 History Have you fallen in the past year?: No PFSH Medical History Right knee sprain Right foot sprain Right ankle sprain History of Elbow Fracture History of humerus fracture History of compression fracture of vertebral column Surgical History History of thyroidectomy, subtotal History of surgical repair of Humerus Social History Smoking Status: Never smoker what type of physical activity do you participate in: yoga frequency: 3-4 times per week HPI Back pain Chief Complaint: Back pain Visit Number: 3 Details: ISRA JAVED is a 63 year old female here today following up with ongoing back pain. She complains of upper back pain and stiffness. The pain starts in her traps and extends down across her shoulder blades into her mid back. She states getting adjusted helps keep her DDD from flaring up. She states the stiffness is worse on the right side and she reports limited ROM in her upper back. She denies pain in her right ribs today. She denies new injury numbness, tingling, or radiculopathy. She continues to do yoga stretches every morning to stay flexible and ease her stiffness. She reports chiropractic adjustments are helpful in relieving her discomfort. 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 Pain Quality: aching and dull Exam Musc General: Yes normal posture, normal gait, muscle weakness, joint tenderness and decreased range of motion Cervical Spine: Yes loss of normal cervical lordosis, Yes cervical muscular tenderness right greater than left lower , Yes cervical spasm bilateral lower trapezius and paracervical muscles, right upper intrinsics and Yes misalignment misalignment: C5, C6 and C7 Thoracic/Lumber: Yes thoracic and lumbar spine normal to inspection, Yes paraspinal tenderness on the right greater than left (lumbopelvic, thoracic), Yes thoraco-lumbar spasm on the right greater than left (QL, glute) and on the left greater than right (trap, levator) and Yes misalignment T1, T2, T3, T4, T5, L3, L4, L5 and RIL Sacroiliac joints: on the right tender to palpation Office Procedures Procedures - Chiropractic Procedures Manipulation: Cervical C6, Lumbar L3, Thoracic T3 and Pelvis RIL Manipulation: 3-4 regions Patient Response: positive Assessment and Plan Assessment and Plan (1) Back pain: Status: Acute Qualifiers: Back pain laterality: left Back pain location: thoracic back pain Chronicity: acute Qualified Code(s): M54.6 - Pain in thoracic spine (2) Compression fx, thoracic spine: Status: Chronic Qualifiers: Encounter type: subsequent encounter Fracture healing: with routine healing Thoracic vertebra fracture level: T10 Qualified Code(s): S22.070D - Wedge compression fracture of T9-T10 vertebra, subsequent encounter for fracture with routine healing Comment: T11 (3) Segmental and somatic dysfunction of pelvic region: Status: Acute (4) Segmental and somatic dysfunction of cervical region: Status: Acute (5) Segmental and somatic dysfunction of lumbar region: Status: Acute (6) Segmental and somatic dysfunction of thoracic region: Status: Acute Orders: Orders Chiropractic Treatments Today M54.6 - Pain in thoracic spine, M99.01 - Segmental and somatic dysfunction of cervical region, M99.02 - Segmental and somatic dysfunction of thoracic region, M99.03 - Segmental and somatic dysfunction of lumbar region, M99.05 - Segmental and somatic dysfunction of pelvic region, S22.070D - Wedge compression fracture of T9-T10 vertebra, subsequent encounter for fracture with routine healing Plan Patient was treated without incident. Continue care as needed. Plan Details Goals Barriers: Goals Decrease spasm Decrease trigger pts Improve ROM Barriers Compression fx Follow Up: PRN Coding Level of Care Code No Charge Diagnoses Acute left-sided thoracic back pain M54.6 Back pain laterality: left Back pain location: thoracic back pain Chron (more content not included)... Normal [facility] Chiropractic Reporton 2024 Chiropractic Report [facility] [address] [place] [id number] OFFICE VISIT Date of Service: 06/10/24 MR#: [id number] Acct: [id number] Name: ISRA JAVED Rep #: [id number] : 1960 Provider: JACQUIE Antony Age/Sex: 63/F Location: [facility] Status: Signed Intake Vital Signs 12/03/23 11:03 Height 5 ft 1 in Intake Visit Reasons: Back pain Chief Complaint: neck and low back pain Allergies No Known Allergies Allergy (Verified 06/10/24 09:41) Medications ???Medication ???Instructions ???Recorded ???Confirmed ???Type ibandronate 150 mg tablet 150 mg PO QMONTH 07/13/14 06/10/24 History Have you fallen in the past year?: No PFSH Medical History Right knee sprain Right foot sprain Right ankle sprain History of Elbow Fracture History of humerus fracture History of compression fracture of vertebral column Surgical History History of thyroidectomy, subtotal History of surgical repair of Humerus Social History Smoking Status: Never smoker what type of physical activity do you participate in: yoga frequency: 3-4 times per week HPI Back pain Chief Complaint: Back pain Visit Number: 2 Details: ISRA JAVED is a 63 year old female here today on minimal upper and mid back discomfort.She feels like getting adjusted helps keep her DDD from flaring up. She states the stiffness is worse on the right sideat times and continues to experience limited ROM at times. She states her right sided rib pain has improved since her last adjustment. She denies new injury numbness, tingling, or radiculopathy. She continues to do yoga stretches every morning to stay flexible and ease her stiffness. She reports chiropractic adjustments are helpful in relieving her discomfort. 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 Pain Quality: aching and dull Exam Musc General: Yes normal posture, normal gait, muscle weakness, joint tenderness and decreased range of motion Cervical Spine: Yes loss of normal cervical lordosis, Yes cervical muscular tenderness left greater than right lower , Yes cervical spasm bilateral lower trapezius and paracervical muscles, right upper intrinsics and Yes misalignment misalignment: C5, C6 and C7 Thoracic/Lumber: Yes thoracic and lumbar spine normal to inspection, Yes paraspinal tenderness on the right greater than left (lumbopelvic, thoracic), Yes thoraco-lumbar spasm on the right greater than left (QL, glute) and on the left greater than right (trap, levator) and Yes misalignment T1, T2, T3, T4, T5, L3, L4, L5 and RIL Sacroiliac joints: on the right tender to palpation Office Procedures Procedures - Chiropractic Procedures Manipulation: Cervical C6, Lumbar L3, Thoracic T3 and Pelvis RIL Manipulation: 3-4 regions Patient Response: positive Assessment and Plan Assessment and Plan (1) Segmental and somatic dysfunction of pelvic region: Status: Acute (2) Segmental and somatic dysfunction of cervical region: Status: Acute (3) Segmental and somatic dysfunction of lumbar region: Status: Acute (4) Segmental and somatic dysfunction of thoracic region: Status: Acute (5) Back pain: Status: Acute Qualifiers: Back pain location: thoracic back pain Chronicity: acute Back pain laterality: left Qualified Code(s): M54.6 - Pain in thoracic spine (6) Compression fx, thoracic spine: Status: Chronic Qualifiers: Encounter type: subsequent encounter Thoracic vertebra fracture level: T10 Fracture healing: with routine healing Qualified Code(s): S22.070D - Wedge compression fracture of T9-T10 vertebra, subsequent encounter for fracture with routine healing Comment: T11 Orders: Orders Chiropractic Treatments Today M99.01 - Segmental and somatic dysfunction of cervical region, M99.02 - Segmental and somatic dysfunction of thoracic region, M99.03 - Segmental and somatic dysfunction of lumbar region, M99.05 - Segmental and somatic dysfunction of pelvic region Plan Patient was treated without incident. Continue care as needed. Plan Details Goals Barriers: Goals Decrease spasm Decrease trigger pts Improve ROM Barriers Compression fx Follow Up: PRN Coding Level of Care Code No Charge Diagnoses Segmental and somatic dysfunction of pelvic region M99.05 Segmental and somatic dysfunction of cervical region M99.01 Segmental and somatic dysfunction of lumbar region M99.03 Segmental and somatic dysfunction of thoracic region M99.02 Acute left-sided thoracic back pain M54.6 Back pain location: thoracic back pain Chronicity: acute Back pain l (more content not included)... Normal [facility] Chiropractic Reporton 2024 Chiropractic Report [facility] [place] [address] OFFICE VISIT Date of Service: 05/12/24 MR#: [id number] Acct: [id number] Name: ISRA JAVED Rep #: [id number] : 1960 Provider: JACQUIE Antony Age/Sex: 63/F Location: [facility] Status: Signed Intake Vital Signs 12/03/23 11:03 Height 5 ft 1 in Intake Visit Reasons: Back pain Chief Complaint: neck and low back pain Allergies No Known Allergies Allergy (Verified 05/12/24 10:22) Medications ???Medication ???Instructions ???Recorded ???Confirmed ???Type ibandronate 150 mg tablet 150 mg PO QMONTH 07/13/14 05/12/24 History Have you fallen in the past year?: No PFSH Medical History Right knee sprain Right foot sprain Right ankle sprain History of Elbow Fracture History of humerus fracture History of compression fracture of vertebral column Surgical History History of thyroidectomy, subtotal History of surgical repair of Humerus Social History Smoking Status: Never smoker what type of physical activity do you participate in: yoga frequency: 3-4 times per week HPI Back pain Chief Complaint: Back pain Visit Number: 1 Details: ISRA JAVED is a 63 year old female here today on upper and mid back discomfort. She complains of a crunching noise with ROM in her neck. She also complains of increased stiffness in her neck. She continues to experience limited ROM in her neck. She complains of ongoing right sided rib pain, she describes it as a tugging sensation. She also states her right leg is very stiff and she is having difficulty bending it when she is doing ROM stretching. She denies new injury numbness, tingling, or radiculopathy. She states she does yoga stretches every morning to stay flexible and ease her stiffness. She reports chiropractic adjustments are helpful in relieving her discomfort. 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 Pain Quality: aching and dull Exam Musc General: Yes normal posture, normal gait, muscle weakness, joint tenderness and decreased range of motion Cervical Spine: Yes loss of normal cervical lordosis, Yes cervical muscular tenderness bilateral diffuse , Yes cervical spasm bilateral lower trapezius and paracervical muscles, right upper intrinsics and Yes misalignment misalignment: C1, C5, C6 and C7 Thoracic/Lumber: Yes thoracic and lumbar spine normal to inspection, Yes paraspinal tenderness on the right greater than left (lumbopelvic, thoracic), Yes thoraco-lumbar spasm on the right greater than left (QL, glute) and on the left greater than right (trap, levator) and Yes misalignment T1, T2, T3, T4, T5, L3, L4, L5 and RIL Sacroiliac joints: on the right tender to palpation Office Procedures Procedures - Chiropractic Procedures Manipulation: Cervical C2 and C6, Lumbar L3, Thoracic T3 and Pelvis RIL Manipulation: 3-4 regions Patient Response: positive Assessment and Plan Assessment and Plan (1) Back pain: Status: Acute Qualifiers: Back pain laterality: left Back pain location: thoracic back pain Chronicity: acute Qualified Code(s): M54.6 - Pain in thoracic spine (2) Compression fx, thoracic spine: Status: Chronic Qualifiers: Encounter type: subsequent encounter Fracture healing: with routine healing Thoracic vertebra fracture level: T10 Qualified Code(s): S22.070D - Wedge compression fracture of T9-T10 vertebra, subsequent encounter for fracture with routine healing Comment: T11 (3) Segmental and somatic dysfunction of pelvic region: Status: Acute (4) Segmental and somatic dysfunction of cervical region: Status: Acute (5) Segmental and somatic dysfunction of lumbar region: Status: Acute (6) Segmental and somatic dysfunction of thoracic region: Status: Acute Orders: Orders Chiropractic Treatments 05/12/24 M54.6 - Pain in thoracic spine, M99.01 - Segmental and somatic dysfunction of cervical region, M99.02 - Segmental and somatic dysfunction of thoracic region, M99.03 - Segmental and somatic dysfunction of lumbar region, M99.05 - Segmental and somatic dysfunction of pelvic region, S22.070D - Wedge compression fracture of T9-T10 vertebra, subsequent encounter for fracture with routine healing Plan Patient was treated without incident. We also reviewed a variety of ROM hip stretches to be performed at home. Plan Details Goals Barriers: Goals Decrease spasm Decrease trigger pts Improve ROM Barriers Compression fx Follow Up: PRN Coding Level of Care Code No Charge Diagnoses Acute left-sided thoracic back pain M54 (more content not included)... Normal [facility]ic Reporton 2024 Chiropractic Report [facility] [address] [place] [address] OFFICE VISIT Date of Service: 03/11/24 MR#: [id number] Acct: [id number] Name: ISRA JAVED Rep #: [id number] : 1960 Provider: JACQUIE Antony Age/Sex: 63/F Location: [facility] Status: Signed Intake Vital Signs 12/03/23 11:03 Height 5 ft 1 in Intake Visit Reasons: Back pain Chief Complaint: neck and low back pain Allergies No Known Allergies Allergy (Verified 03/11/24 13:16) Medications ???Medication ???Instructions ???Recorded ???Confirmed ???Type ibandronate 150 mg tablet 150 mg PO QMONTH 07/13/14 03/11/24 History Have you fallen in the past year?: No PFSH Medical History Right knee sprain Right foot sprain Right ankle sprain History of Elbow Fracture History of humerus fracture History of compression fracture of vertebral column Surgical History History of thyroidectomy, subtotal History of surgical repair of Humerus Social History Smoking Status: Never smoker what type of physical activity do you participate in: yoga frequency: 3-4 times per week HPI Back pain Chief Complaint: Back pain Visit Number: 1 Details: ISRA JAVED is a 63 year old female here today on upper and mid back discomfort. She complains of stiffness in her neck and upper back. She continues to experience limited ROM in her neck. She complains of right sided rib pain, she describes it as a tugging sensation. This was an insidious onset. She denies new injury numbness, tingling, or radiculopathy. She states she does yoga stretches every morning to stay flexible and ease her stiffness. She reports chiropractic adjustments are helpful in relieving her discomfort. 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 Pain Quality: aching and dull Exam Musc General: Yes normal posture, normal gait, muscle weakness, joint tenderness and decreased range of motion Cervical Spine: Yes loss of normal cervical lordosis, Yes cervical muscular tenderness left greater than right lower , Yes cervical spasm bilateral lower trapezius and paracervical muscles, right upper intrinsics and Yes misalignment misalignment: C1, C5, C6 and C7 Thoracic/Lumber: Yes thoracic and lumbar spine normal to inspection, Yes paraspinal tenderness (mild) on the right greater than left (lumbopelvic) and on the left greater than right (upper/mid thoracic), Yes thoraco-lumbar spasm on the right greater than left (QL, glute) and on the left greater than right (trap, levator) and Yes misalignment T1, T2, T3, T4, T5, L3, L4, L5 and RIL Sacroiliac joints: on the right tender to palpation Office Procedures Procedures - Chiropractic Procedures Manipulation: Cervical C2 and C6, Lumbar L3, Thoracic T3 and Pelvis RIL Manipulation: 3-4 regions Patient Response: positive Assessment and Plan Assessment and Plan (1) Back pain: Status: Acute Qualifiers: Back pain laterality: left Back pain location: thoracic back pain Chronicity: acute Qualified Code(s): M54.6 - Pain in thoracic spine (2) Compression fx, thoracic spine: Status: Chronic Qualifiers: Encounter type: subsequent encounter Fracture healing: with routine healing Thoracic vertebra fracture level: T10 Qualified Code(s): S22.070D - Wedge compression fracture of T9-T10 vertebra, subsequent encounter for fracture with routine healing Comment: T11 (3) Segmental and somatic dysfunction of pelvic region: Status: Acute (4) Segmental and somatic dysfunction of cervical region: Status: Acute (5) Segmental and somatic dysfunction of lumbar region: Status: Acute (6) Segmental and somatic dysfunction of thoracic region: Status: Acute Orders: Orders Chiropractic Treatments Today M54.6 - Pain in thoracic spine, M99.01 - Segmental and somatic dysfunction of cervical region, M99.02 - Segmental and somatic dysfunction of thoracic region, M99.03 - Segmental and somatic dysfunction of lumbar region, M99.05 - Segmental and somatic dysfunction of pelvic region, S22.070D - Wedge compression fracture of T9-T10 vertebra, subsequent encounter for fracture with routine healing Plan Patient was treated without incident. Continue care as needed. Plan Details Goals Barriers: Goals Decrease spasm Decrease trigger pts Improve ROM Barriers Compression fx Follow Up: PRN Coding Level of Care Code No Charge Diagnoses Acute left-sided thoracic back pain M54.6 Back pain laterality: left Back pain location: thoracic back pain Chronicity: acute Compression fracture of T10 vertebra with routine hea (more content not included)... Normal [facility] Chiropractic Reporton 2023 Chiropractic Report [facility] [address] [place] [address] OFFICE VISIT Date of Service: 01/29/24 MR#: [id number] Acct: [id number] Name: ISRA JAVED Rep #: [id number] : 1960 Provider: JACQUIE Antony Age/Sex: 63/F Location: [facility] Status: Signed Intake Vital Signs 12/03/23 11:03 Height 5 ft 1 in Intake Visit Reasons: Back pain Chief Complaint: neck and low back pain Allergies No Known Allergies Allergy (Verified 01/29/24 11:16) Medications ???Medication ???Instructions ???Recorded ???Confirmed ???Type ibandronate 150 mg tablet 150 mg PO QMONTH 07/13/14 01/29/24 History Have you fallen in the past year?: No PFSH Medical History Right knee sprain Right foot sprain Right ankle sprain History of Elbow Fracture History of humerus fracture History of compression fracture of vertebral column Surgical History History of thyroidectomy, subtotal History of surgical repair of Humerus Social History (Reviewed 01/29/24 @ 11:17 by Dory Quach Smoking Status: Never smoker what type of physical activity do you participate in: yoga frequency: 3-4 times per week HPI Back pain Chief Complaint: Back pain Visit Number: 10 Details: ISRA JAVED is a 63 year old female here today on upper and mid back discomfort. She denies pain today but complains of stiffness in her neck and upper back. She does report limited ROM of her neck. She denies new injury numbness, tingling, or radiculopathy. She states she does yoga stretches every morning to stay flexible and ease her stiffness. She reports chiropractic adjustments are helpful in relieving her discomfort. 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 Pain Quality: aching and dull Exam Musc General: Yes normal posture, normal gait, muscle weakness, joint tenderness and decreased range of motion Cervical Spine: Yes loss of normal cervical lordosis, Yes cervical muscular tenderness right greater than left lower , Yes cervical spasm bilateral lower trapezius and paracervical muscles, right upper intrinsics and Yes misalignment misalignment: C1, C5, C6 and C7 Thoracic/Lumber: Yes thoracic and lumbar spine normal to inspection, Yes paraspinal tenderness (mild) on the right greater than left (lumbopelvic) and on the left greater than right (upper/mid thoracic), Yes thoraco-lumbar spasm on the right greater than left (QL, glute) and on the left greater than right (trap, levator) and Yes misalignment T1, T2, T3, T4, T5, L3, L4, L5 and RIL Sacroiliac joints: on the right tender to palpation Office Procedures Procedures - Chiropractic Procedures Manipulation: Cervical C2 and C6, Lumbar L3, Thoracic T3 and Pelvis RIL Manipulation: 3-4 regions Patient Response: positive Assessment and Plan Assessment and Plan (1) Compression fx, thoracic spine: Status: Chronic Qualifiers: Encounter type: subsequent encounter Fracture healing: with routine healing Thoracic vertebra fracture level: T10 Qualified Code(s): S22.070D - Wedge compression fracture of T9-T10 vertebra, subsequent encounter for fracture with routine healing Comment: T11 (2) Segmental and somatic dysfunction of pelvic region: Status: Acute (3) Segmental and somatic dysfunction of cervical region: Status: Acute (4) Segmental and somatic dysfunction of lumbar region: Status: Acute (5) Segmental and somatic dysfunction of thoracic region: Status: Acute Orders: Orders Chiropractic Treatments Today M99.01 - Segmental and somatic dysfunction of cervical region, M99.02 - Segmental and somatic dysfunction of thoracic region, M99.03 - Segmental and somatic dysfunction of lumbar region, M99.05 - Segmental and somatic dysfunction of pelvic region, S22.070D - Wedge compression fracture of T9-T10 vertebra, subsequent encounter for fracture with routine healing Plan Patient was treated without incident. Follow up PRN. Plan Details Goals Barriers: Goals Decrease spasm Decrease trigger pts Improve ROM Barriers Compression fx Follow Up: PRN Coding Level of Care Code No Charge Diagnoses Compression fracture of T10 vertebra with routine healing, subsequent encounter S22.070D Encounter type: subsequent encounter Fracture healing: with routine healing Thoracic vertebra fracture level: T10 Segmental and somatic dysfunction of pelvic region M99.05 Segmental and somatic dysfunction of cervical region M99.01 Segmental and somatic dysfunction of lumbar region M99.03 Segmental and somatic dysfunction of thoracic region M99.02 CPT Codes Procedures - Manipulation: 3-4 regions ([id number]) (more content not included)... Normal [facility]rop[facility] Reporton 2023 Chiropractic Report [facility] [address] [place] [address] OFFICE VISIT Date of Service: 01/01/24 MR#: [id number] Acct: [id number] Name: ISRA JAVED Rep #: [id number] : 1960 Provider: JACQUIE Antony Age/Sex: 63/F Location: [facility] Status: Signed Intake Vital Signs 10/03/21 15:51 12/03/23 11:03 Height 5 ft 1 in 5 ft 1 in Intake Visit Reasons: Back pain Chief Complaint: neck and low back pain Allergies No Known Allergies Allergy (Verified 01/01/24 13:17) Medications ???Medication ???Instructions ???Recorded ???Confirmed ???Type ibandronate 150 mg tablet 150 mg PO QMONTH 07/13/14 01/01/24 History Have you fallen in the past year?: No PFSH Medical History Right knee sprain Right foot sprain Right ankle sprain History of Elbow Fracture History of humerus fracture History of compression fracture of vertebral column Surgical History History of thyroidectomy, subtotal History of surgical repair of Humerus Social History Smoking Status: Never smoker what type of physical activity do you participate in: yoga frequency: 3-4 times per week HPI Back pain Chief Complaint: Back pain Visit Number: 9 Details: ISRA JAVED is a 63 year old female here today on upper and mid back discomfort. Pt. complains of stiffness in her neck that is due to arthritis. She does report limited ROM of her neck. She does experience intermittent upper back and mid back stiffness. She denies new injury numbness, tingling, or radiculopathy. She states she does yoga stretches every morning to stay flexible and ease her stiffness. She reports chiropractic adjustments are helpful in relieving her discomfort. 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 Pain Quality: aching and dull Exam Musc General: Yes normal posture, normal gait, muscle weakness, joint tenderness and decreased range of motion Cervical Spine: Yes loss of normal cervical lordosis, Yes cervical muscular tenderness bilateral lower , Yes cervical spasm bilateral lower trapezius and paracervical muscles, right upper intrinsics and Yes misalignment misalignment: C1, C5, C6 and C7 Thoracic/Lumber: Yes thoracic and lumbar spine normal to inspection, Yes paraspinal tenderness on the right greater than left (lumbopelvic) and on the left greater than right (upper/mid thoracic), Yes thoraco-lumbar spasm on the right greater than left (QL, glute) and on the left greater than right (trap, levator) and Yes misalignment T1, T2, T3, T4, T5, L3, L4, L5 and RIL Sacroiliac joints: on the right tender to palpation Office Procedures Procedures - Chiropractic Procedures Manipulation: Cervical C2 and C6, Lumbar L3, Thoracic T3 and Pelvis RIL Manipulation: 3-4 regions Patient Response: positive Assessment and Plan Assessment and Plan (1) Compression fx, thoracic spine: Status: Chronic Qualifiers: Encounter type: subsequent encounter Fracture healing: with routine healing Thoracic vertebra fracture level: T10 Qualified Code(s): S22.070D - Wedge compression fracture of T9-T10 vertebra, subsequent encounter for fracture with routine healing Comment: T11 (2) Segmental and somatic dysfunction of pelvic region: Status: Acute (3) Segmental and somatic dysfunction of cervical region: Status: Acute (4) Segmental and somatic dysfunction of lumbar region: Status: Acute (5) Segmental and somatic dysfunction of thoracic region: Status: Acute Orders: Orders Chiropractic Treatments Today M54.6 - Pain in thoracic spine, M99.01 - Segmental and somatic dysfunction of cervical region, M99.02 - Segmental and somatic dysfunction of thoracic region, M99.03 - Segmental and somatic dysfunction of lumbar region, M99.05 - Segmental and somatic dysfunction of pelvic region, S22.070D - Wedge compression fracture of T9-T10 vertebra, subsequent encounter for fracture with routine healing Plan Patient was treated without incident. Continue care as needed. Plan Details Goals Barriers: Goals Decrease spasm Decrease trigger pts Improve ROM Barriers Compression fx Follow Up: PRN Coding Level of Care Code No Charge Diagnoses Compression fracture of T10 vertebra with routine healing, subsequent encounter S22.070D Encounter type: subsequent encounter Fracture healing: with routine healing Thoracic vertebra fracture level: T10 Segmental and somatic dysfunction of pelvic region M99.05 Segmental and somatic dysfunction of cervical region M99.01 Segmental and somatic dysfunction of lumbar region M99.03 Segmental and somati (more content not included)... Normal [facility] Reporton 2023 Chiropractic Report [facility] [address] [place] [address] OFFICE VISIT Date of Service: 12/03/23 MR#: [id number] Acct: [id number] Name: TELLOISRA VAELNTINA Rep #: [id number] : 1960 Provider: JACQUIE Antony Age/Sex: 63/F Location: [facility] Status: Signed Intake Vital Signs 10/03/21 15:51 Height 5 ft 1 in Intake Visit Reasons: Back pain Chief Complaint: neck and low back pain Allergies No Known Allergies Allergy (Verified 12/03/23 11:30) Medications ???Medication ???Instructions ???Recorded ???Confirmed ???Type ibandronate 150 mg tablet 150 mg PO QMONTH 07/13/14 12/03/23 History Have you fallen in the past year?: No PFSH Medical History Right knee sprain Right foot sprain Right ankle sprain History of Elbow Fracture History of humerus fracture History of compression fracture of vertebral column Surgical History History of thyroidectomy, subtotal History of surgical repair of Humerus Social History Smoking Status: Never smoker what type of physical activity do you participate in: yoga frequency: 3-4 times per week HPI Back pain Chief Complaint: Back pain Visit Number: 8 Details: ISRA JAVED is a 62 year old F here today for upper/mid back discomfort. Pt. advises she continues to experience some mild stiffness on the left side of her neck and across her shoulder blades. She also complains her upper and mid back are tight and her left side tightened up on her last week for a couple days. She c/o limited ROM. She denies new injury numbness, tingling, or radiculopathy. She states she does yoga stretches every morning to stay flexible and ease her stiffness. She reports chiropractic adjustments are helpful in relieving her discomfort. 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 Pain Quality: aching and dull Exam Musc General: Yes normal posture, normal gait, muscle weakness, joint tenderness and decreased range of motion Cervical Spine: Yes loss of normal cervical lordosis, Yes cervical muscular tenderness bilateral lower , Yes cervical spasm bilateral lower trapezius and paracervical muscles, right upper intrinsics and Yes misalignment misalignment: C1, C5, C6 and C7 Thoracic/Lumber: Yes thoracic and lumbar spine normal to inspection, Yes paraspinal tenderness on the right greater than left (lumbopelvic) and on the left greater than right (upper/mid thoracic), Yes thoraco-lumbar spasm on the right greater than left (QL, glute) and on the left greater than right (trap, levator) and Yes misalignment T1, T2, T3, T4, T5, L3, L4, L5 and RIL Sacroiliac joints: on the right tender to palpation Office Procedures Procedures - Chiropractic Procedures Manipulation: Cervical C2 and C6, Lumbar L3, Thoracic T3 and Pelvis LIL Manipulation: 3-4 regions Patient Response: positive Assessment and Plan Assessment and Plan (1) Segmental and somatic dysfunction of thoracic region: Status: Acute (2) Segmental and somatic dysfunction of pelvic region: Status: Acute (3) Segmental and somatic dysfunction of cervical region: Status: Acute (4) Segmental and somatic dysfunction of lumbar region: Status: Acute (5) Segmental and somatic dysfunction of thoracic region: Status: Acute (6) Compression fx, thoracic spine: Status: Chronic Qualifiers: Encounter type: subsequent encounter Thoracic vertebra fracture level: T10 Fracture healing: with routine healing Qualified Code(s): S22.070D - Wedge compression fracture of T9-T10 vertebra, subsequent encounter for fracture with routine healing Comment: T11 Orders: Orders Chiropractic Treatments Today M99.01 - Segmental and somatic dysfunction of cervical region, M99.02 - Segmental and somatic dysfunction of thoracic region, M99.03 - Segmental and somatic dysfunction of lumbar region, M99.05 - Segmental and somatic dysfunction of pelvic region Plan Patient was treated without incident. Continue care as needed. Plan Details Goals Barriers: Goals Decrease spasm Decrease trigger pts Improve ROM Barriers Compression fx Follow Up: PRN Coding Level of Care Code No Charge Diagnoses Segmental and somatic dysfunction of thoracic region M99.02 Segmental and somatic dysfunction of pelvic region M99.05 Segmental and somatic dysfunction of cervical region M99.01 Segmental and somatic dysfunction of lumbar region M99.03 Compression fracture of T10 vertebra with routine healing, subsequent encounter S22.070D Encounter type: subsequent encounter Thoracic vertebra fracture level: T10 Fracture healing: with (more content not included)... Normal [facility] Chiropractic Reporton 2023 Chiropractic Report [facility] [address] [place] [id number] OFFICE VISIT Date of Service: 11/06/23 MR#: [id number] Acct: [id number] Name: JAVEDISRATANMAY MONTGOMERY Rep #: [id number] : 1960 Provider: JACQUIE Antony Age/Sex: 62/F Location: [facility] Status: Signed Intake Vital Signs 10/03/21 15:51 Height 5 ft 1 in Intake Visit Reasons: Back pain Chief Complaint: neck and low back pain Allergies No Known Allergies Allergy (Verified 11/06/23 11:14) Medications ???Medication ???Instructions ???Recorded ???Confirmed ???Type ibandronate 150 mg tablet 150 mg PO QMONTH 07/13/14 11/06/23 History PFSH Medical History Right knee sprain Right foot sprain Right ankle sprain History of Elbow Fracture History of humerus fracture History of compression fracture of vertebral column Surgical History History of thyroidectomy, subtotal History of surgical repair of Humerus Social History Smoking Status: Never smoker what type of physical activity do you participate in: yoga frequency: 3-4 times per week HPI Back pain Chief Complaint: Back pain Visit Number: 7 Details: ISRA JAVED is a 62 year old F here today for upper/mid back discomfort. Pt. advises she is experiencing stiffness on the left side of her neck and across her shoulder blades. She also complains her upper and mid back are tight. She denies new injury numbness, tingling, or radiculopathy. She states she does yoga stretches every morning which does help to reduce her discomfort. She reports her chiropractic adjustments are helpful in relieving her discomfort. 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 Pain Quality: aching and dull Exam Musc General: Yes normal posture, normal gait, muscle weakness, joint tenderness and decreased range of motion Cervical Spine: Yes loss of normal cervical lordosis, Yes cervical muscular tenderness left greater than right lower , Yes cervical spasm bilateral lower trapezius and paracervical muscles, right upper intrinsics and Yes misalignment misalignment: C1, C5, C6 and C7 Thoracic/Lumber: Yes thoracic and lumbar spine normal to inspection, Yes paraspinal tenderness on the right greater than left (lumbopelvic) and on the left greater than right (upper/mid thoracic), Yes thoraco-lumbar spasm on the right greater than left (QL, glute) and on the left greater than right (trap, levator) and Yes misalignment T1, T2, T3, T4, T5, L3, L4, L5 and RIL Sacroiliac joints: on the right tender to palpation Office Procedures Procedures - Chiropractic Procedures Manipulation: Cervical C2 and C6, Lumbar L3, Thoracic T3 and Pelvis LIL Manipulation: 3-4 regions Patient Response: positive Assessment and Plan Assessment and Plan (1) Segmental and somatic dysfunction of pelvic region: Status: Acute (2) Segmental and somatic dysfunction of cervical region: Status: Acute (3) Segmental and somatic dysfunction of lumbar region: Status: Acute (4) Segmental and somatic dysfunction of thoracic region: Status: Acute (5) Compression fx, thoracic spine: Status: Chronic Qualifiers: Encounter type: subsequent encounter Thoracic vertebra fracture level: T10 Fracture healing: with routine healing Qualified Code(s): S22.070D - Wedge compression fracture of T9-T10 vertebra, subsequent encounter for fracture with routine healing Comment: T11 Orders: Orders Chiropractic Treatments Today M99.01 - Segmental and somatic dysfunction of cervical region, M99.02 - Segmental and somatic dysfunction of thoracic region, M99.03 - Segmental and somatic dysfunction of lumbar region, M99.05 - Segmental and somatic dysfunction of pelvic region Plan Patient was treated without incident. Continue care as needed. Plan Details Goals Barriers: Goals Decrease spasm Decrease trigger pts Improve ROM Barriers Compression fx Follow Up: PRN Coding Level of Care Code No Charge Diagnoses Segmental and somatic dysfunction of pelvic region M99.05 Segmental and somatic dysfunction of cervical region M99.01 Segmental and somatic dysfunction of lumbar region M99.03 Segmental and somatic dysfunction of thoracic region M99.02 Compression fracture of T10 vertebra with routine healing, subsequent encounter S22.070D Encounter type: subsequent encounter Thoracic vertebra fracture level: T10 Fracture healing: with routine healing CPT Codes Procedures - Manipulation: 3-4 regions ([id number]) 11/06/23 1259 Date Thelma Montiel (more content not included)... Normal [facility] Chiropractic Reporton 2023 Chiropractic Report [facility] [place] [address] OFFICE VISIT Date of Service: 10/09/23 MR#: [id number] Acct: [id number] Name: ISRA JAVED Rep #: [id number] : 1960 Provider: JACQUIE Antony Age/Sex: 62/F Location: [facility] Status: Signed Intake Vital Signs 10/03/21 15:51 Height 5 ft 1 in Intake Visit Reasons: Back pain Chief Complaint: neck and low back pain Is patient in pain?: Yes Pain scale (1-10): 1 Allergies No Known Allergies Allergy (Verified 10/09/23 10:35) Medications ???Medication ???Instructions ???Recorded ???Confirmed ???Type ibandronate 150 mg tablet 150 mg PO QMONTH 07/13/14 10/09/23 History Have you fallen in the past year?: No PFSH Medical History Right knee sprain Right foot sprain Right ankle sprain History of Elbow Fracture History of humerus fracture History of compression fracture of vertebral column Surgical History History of thyroidectomy, subtotal History of surgical repair of Humerus Social History Smoking Status: Never smoker what type of physical activity do you participate in: yoga frequency: 3-4 times per week HPI Back pain Chief Complaint: Back pain Visit Number: 6 Details: ISRA JAVED is a 62 year old F here today for upper/mid back discomfort. Pt. complains of stiffness across her shoulder blades as well as her upper and mid back are tight. Her neck pain has been improving and her low back is not bothersome today. She rates her pain at 1/10 today. She states she does yoga stretches every morning which does help to reduce her discomfort. She reports her chiropractic adjustments are helpful in relieving her discomfort. She denies new injury numbness, tingling, or radiculopathy. 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 Pain Quality: aching and dull Exam Musc General: Yes normal posture, normal gait, muscle weakness, joint tenderness and decreased range of motion Cervical Spine: Yes loss of normal cervical lordosis, Yes cervical muscular tenderness left greater than right lower , Yes cervical spasm bilateral lower trapezius and paracervical muscles, right upper intrinsics and Yes misalignment misalignment: C1, C5, C6 and C7 Thoracic/Lumber: Yes thoracic and lumbar spine normal to inspection, Yes paraspinal tenderness on the right greater than left (lumbopelvic) and on the left greater than right (upper/mid thoracic), Yes thoraco-lumbar spasm on the right greater than left (QL, glute) and on the left greater than right (trap, levator) and Yes misalignment T1, T2, T3, T4, T5, L3, L4, L5 and RIL Sacroiliac joints: on the right tender to palpation Office Procedures Procedures - Chiropractic Procedures Manipulation: Cervical C2 and C6, Lumbar L3, Thoracic T3 and Pelvis LIL Manipulation: 3-4 regions Patient Response: positive Assessment and Plan Assessment and Plan (1) Segmental and somatic dysfunction of thoracic region: Status: Acute (2) Segmental and somatic dysfunction of pelvic region: Status: Acute (3) Segmental and somatic dysfunction of cervical region: Status: Acute (4) Segmental and somatic dysfunction of lumbar region: Status: Acute (5) Segmental and somatic dysfunction of thoracic region: Status: Acute (6) Compression fx, thoracic spine: Status: Chronic Qualifiers: Encounter type: subsequent encounter Thoracic vertebra fracture level: T10 Fracture healing: with routine healing Qualified Code(s): S22.070D - Wedge compression fracture of T9-T10 vertebra, subsequent encounter for fracture with routine healing Comment: T11 Orders: Orders Chiropractic Treatments Today M54.2 - Cervicalgia, M54.6 - Pain in thoracic spine, M99.01 - Segmental and somatic dysfunction of cervical region, M99.02 - Segmental and somatic dysfunction of thoracic region, M99.03 - Segmental and somatic dysfunction of lumbar region, M99.05 - Segmental and somatic dysfunction of pelvic region Plan Patient was treated without incident. Continue care as needed. Plan Details Goals Barriers: Goals Decrease spasm Decrease trigger pts Improve ROM Barriers Compression fx Follow Up: PRN Coding Level of Care Code No Charge Diagnoses Segmental and somatic dysfunction of thoracic region M99.02 Segmental and somatic dysfunction of pelvic region M99.05 Segmental and somatic dysfunction of cervical region M99.01 Segmental and somatic dysfunction of lumbar region M99.03 Compression fracture of T10 vertebra with routine healing, subsequent encounter S22.000L Encounter type: subs (more content not included)... Normal [facility] Absolute lymphocyte countOrd ered By: Dr. Palumbo on 07-28-2022 Lymphocytes Auto (Unsp spec) [#/Vol] 1.08 10*3/uL 0.83-4.51 [facility] Basophil percentageOrdered B y: Dr. Palumbo on 07-28-2022 Basophils/100 WBC (Bld) 0.9 % 0-1 [facility] Chloride [Moles/Vol] 106 mmol/L 98-107 [facility] Eosinophils/100 WBC (Bld) 1.5 % 0-5 [facility] Glucose [Mass/Vol] 97 mg/dL 74-106 [facility] Neutrophils (Bld) [#/Vol] 4.2 10*3/uL 2.0-7.7 [facility] Neutrophils/100 WBC (Bld) 72.1 % 47-70 [facility] Potassium [Moles/Vol] 4.4 mmol/L 3.5-5.1 [facility] Sodium [Moles/Vol] 141 mmol/L 136-145 [facility] WBC (Bld) [#/Vol] 5.9 10*3/uL 4.4-11.0 [facility] Blood erythrocytes count (nu mber/volume)Ordered By: Dr. Palmubo on 07-28-2022 RBC (Bld) [#/Vol] 4.31 10*6/uL 4.2-5.4 [facility] Blood hemoglobin measurement (mass/volume)Ordered By: Dr. Palumbo on 07-28-2022 Hemoglobin (Bld) [Mass/Vol] 13.1 g/dL 12.0-15.0 [facility] Blood lymphocytes/100 leukoc ytesOrdered By: Dr. Palumbo on 07-28-2022 Lymphocytes/100 WBC (Bld) 18.5 % 19-41 [facility] Blood monocytes/100 leukocyt esOrdered By: Dr. Palumbo on 07-28-2022 Monocytes/100 WBC (Bld) 6.8 % 0-10 [facility] Blood platelet mean volumeOr dered By: Dr. Palumbo on 07-28-2022 Platelet mean volume (Bld) [Entitic vol] 10.5 fL 6.2-12.0 [facility] Determination of erythrocyte mean corpuscular volume (MCV)Ordered By: Dr. Palumbo on 07-28-2022 MCV (RBC) [Entitic vol] 93.7 fL 81-99 [facility] Hematocrit Auto (Bld) [Volum e fraction]Ordered By: Dr. Palumbo on 07-28-2022 Hematocrit (Bld) [Volume fraction] 40.4 % 37-47 [facility] Laboratory - Chemistry and C hemistry - challengeOrdered By: Dr. Palumbo on 07-28-2022 CO2 [Moles/Vol] 29.0 mmol/L 21.0-32.0 [facility] Urea nitrogen/Creatinine [Mass ratio] 28.8 mg/mg 10-20 [facility] - Hematology and Cell countsOrdered By: Dr. Palumbo on 07-28-2022 Erythrocyte distribution width (RBC) [Entitic vol] 44.0 fL 35.1-43.9 [facility] Erythrocyte distribution width (RBC) [Ratio] 12.7 % 11.6-14.6 [facility] Immature granulocytes/100 WBC (Bld) 0.200 % 0.0-0.9 [facility] Comment on above: IG% - Immature Granu locytes (promyelocytes, myelocytes and metamyelocytes) > 1% indicates that a LEFT SHIFT is Present. MCH (RBC) [Entitic mass] 30.4 pg 27.0-32.0 [facility] Nucleated RBC/100 WBC (Bld) [Ratio] 0 % 0-5 [facility] MCHC Auto (RBC) [Mass/Vol]Or dered By: Dr. Palumbo on 07-28-2022 MCHC (RBC) [Mass/Vol] 32.4 g/dL 32-36 [facility] No Panel InformationOrdered By: Dr. Palumbo on 07-28-2022 Estimated GFR (MDRD) Amer 116 mL/min >60 [facility] Comment on above: GFR Calc Estimated GFR (MDRD) Non-Af Amer 96 mL/min >60 [facility] Comment on above: Non- GFR Calc Thyroid Stimulating Hormone (TSH) 2.13 uIU/mL 0.358-3.74 [facility] Platelets bldOrdered By: Dr. Palumbo on 07-28-2022 Platelets (Bld) [#/Vol] 257 10*3/uL 150-450 [facility] Serum or plasma calcium aniyah urement (mass/volume)Ordered By: Dr. Palumbo on 07-28-2022 Calcium [Mass/Vol] 9.1 mg/dL 8.5-10.1 [facility] Serum or plasma creatinine m easurement (mass/volume)Ordered By: Dr. Palumbo on 07-28-2022 Creatinine [Mass/Vol] 0.66 mg/dL 0.55-1.02 [facility] Comment on above: The validity of the calculated GFR & GFRAA in patients over 70 years has not been determined. Clinical correlation is essential. Serum or plasma urea nitroge n measurement (mass/volume)Ordered By: Dr. Palumbo on 07-28-2022 Urea nitrogen [Mass/Vol] 19 mg/dL 7-18 [facility] Thin prep Papanicolaou smear with manual screeningOrdered By: Dr. Palumbo on 07-28-2022 Thin prep Papanicolaou smear with manual screening 6 5-15 [facility] Vital Signs Date Time Vital Sign Value Performing Clinician Faci lity 09-04-2024 08:110400 Body temperature 98.1 [degF] Dr. Rainer Palumbo MD Work Phone: [facility] 09-04-2024 08:[id number] Diastolic blood pressure 60 mm[Hg] Dr. Rainer Palumbo MD Work Phone: [facility] 09-04-2024 08:11-0400 Heart rate 65 /min Dr. Rainer Palumbo MD Work Phone: [facility] 09-04-2024 08:11-0400 Respiratory rate 15 /min Dr. Rainer Palumbo MD Work Phone: [facility] 09-04-2024 08:11-0400 SaO2% (BldA) [Mass fraction] 97 % Dr. Rainer Palumbo MD Work Phone: [facility] 09-04-2024 08:11-0400 Systolic blood pressure 104 mm[Hg] Dr. Rainer Palumbo MD Work Phone: [facility] 08-18-2024 12:58-0400 Body height 154.[address] Rainer Palumbo MD Work Phone: [phone] [place] [address] 08-18-2024 12:58-0400 Body temperature 98.2 [degF] Dr. Rainer Palumbo MD Work Phone: [facility] 08-18-2024 12:58-0400 Diastolic blood pressure 70 mm[Hg] Dr. Rainer Palumbo MD Work Phone: [phone] [place] [address] 08-18-2024 12:58-0400 Heart rate 76 /min Dr. Rainer Palumbo MD Work Phone: [facility] 08-18-2024 12:58-0400 Respiratory rate 16 /min Dr. Rainer Palumbo MD Work Phone: [facility] 08-18-2024 12:58-0400 SaO2% (BldA) [Mass fraction] 97 % Dr. Rainer Palumbo MD Work Phone: [facility] 08-18-2024 12:58-0400 Systolic blood pressure 110 mm[Hg] Dr. Rainer Palumbo MD Work Phone: [facility] 01-22-2023 13:28-0500 Body temperature 97.9 [degF] Dr. Rainer Palumbo Work Phone: [facility] 01-22-2023 13:28-0500 Diastolic blood pressure 62 mm[Hg] Dr. Rainer Palumbo Work Phone: [facility] 01-22-2023 13:28-0500 Heart rate 73 /min Dr. Rainer Palumbo Work Phone: [facility] 01-22-2023 13:28-0500 Respiratory rate 14 /min Dr. Rainer Palumbo Work Phone: [facility] 01-22-2023 13:28-0500 SaO2% (BldA) [Mass fraction] 96 % Dr. Ranier Palumbo Work Phone: [facility] 01-22-2023 13:28-0500 Systolic blood pressure 114 mm[Hg] Dr. Rainer Palumbo Work Phone: [facility] Encounters Encounter Date Encounter Type Care Provider Facility Start: 09-04-2024 End: 09-04-2024 Patient encounter procedure Sunny GARVEY [facility] Work Phone: Start: 09-04-2024 End: 09-04-[address] Rainer Palumbo MD Work Phone: [facility] Start: 09-04-2024 End: 09-04-2024 ambulatory Sunny GARVEY Facility:[facility] Start: 08-18-2024 End: 08-18-[address] Rainer Palumbo MD Work Phone: -[facility] Start: 08-18-2024 End: 08-18-2024 Patient encounter procedure Cony Freeman PA -[facility] Work Phone: Start: 08-18-2024 End: 08-18-2024 Patient encounter procedure Cony Freeman PA -[facility] Work Phone: Start: 08-18-2024 End: 08-18-[address] Rainer Palumbo MD Work Phone: [facility] Start: 08-18-2024 End: 08-18-2024 ambulatory Rainer Palumbo Facility:[facility] Start: 08-04-2024 ambulatory Thelma Raymundo Facility:[facility] Start: 07-08-2024 End: 07-08-[address] Thelma Raym[facility] Work Phone: Start: 07-08-2024 End: 07-08-[address] Rainer Palumbo MD Work Phone: [facility] Work Phone: Start: 06-10-2024 End: 06-10-[address] Thelma Raymundo [place] [facility] Work Phone: Start: 06-10-2024 End: 06-10-2024 ambulatory Thelma Raymundo Facility:[facility] Start: 05-12-2024 End: 05-12-[address] Thelma Raymundo [facility] -[facility] Work Phone: Start: 05-12-2024 End: 05-12-2024 ambulatory Rainer Palumbo Facility:[facility] Start: 03-11-2024 End: 03-11-[address] Thelma Raymundo [facility] -[facility] Work Phone: Start: 03-11-2024 End: 03-11-2024 ambulatory Rainer Palumbo Facility:[facility] Start: 01-29-2024 End: 01-29-2024 ambulatory Rainer Palumbo Facility:[facility] Start: 01-01-2024 End: 01-01-2024 ambulatory Rainer Palumbo Facility:[facility] Start: 12-03-2023 End: 12-03-2023 ambulatory Rainer Palumbo Facility:[facility] Start: 11-06-2023 End: 11-06-2023 ambulatory Thelma Raymundo Facility:[facility] Start: 10-09-2023 End: 10-09-2023 ambulatory Thelma Raymundo Facility:[facility] Start: 03-26-2023 End: 03-26-[address] Rainer Palumbo Work Phone: [facility] Work Phone: Start: 02-26-2023 End: 02-26-[address] Rainer Palumbo Work Phone: [facility] Work Phone: Start: 01-29-2023 End: 01-29-[address] Rainer Palumbo Work Phone: [facility] Work Phone: Start: 01-25-2023 End: 01-25-[address] Rainer Palumbo Work Phone: [facility] Work Phone: Start: 01-25-2023 End: 01-25-[address] Rainer Palumbo Work Phone: [facility] Work Phone: Start: 01-25-[address] Rainer Palumbo Work Phone: [facility] Work Phone: Start: 01-22-2023 End: 01-22-[address] Rainer Palumbo Work Phone: [facility] Work Phone: Start: 01-22-2023 End: 01-22-[address] Rainer Palumbo Work Phone: [facility] Work Phone: Start: 01-02-2023 End: 01-02-[address] Rainer Palumbo Work Phone: [facility] Work Phone: Start: 12-07-2022 End: 12-07-[address] Rainer Palumbo Work Phone: [facility] Work Phone: Start: 10-26-2022 End: 10-26-[address] Rainer Palumbo Work Phone: [facility] Work Phone: Start: 07-28-2022 End: 07-28-[address] Rainer Palumbo Work Phone: [facility] Work Phone: Start: 07-28-2022 End: 07-28-[address] Rainer Palumbo Work Phone: [facility] Start: 07-06-2022 End: 07-06-[address] Rainer Palumbo Work Phone: [facility] Start: 05-11-2022 End: 05-11-[address] Rainer Palumbo Work Phone: [facility] Start: 04-13-2022 End: 04-13-[address] Rainer Palumbo Work Phone: [facility] Start: 06-13-2021 End: 06-13-[address] [facility] Start: 06-02-2021 End: 06-02-[address] Rianer Palumbo Work Phone: [facility] Start: 04-28-2021 End: 04-28-[address] Rainer Palumbo Work Phone: [facility] Start: 03-31-2021 End: 03-31-[address] Rainer Palumbo Work Phone: [facility] Start: 03-03-2021 End: 03-03-[address] Rainer Palumbo Work Phone: [facility] Procedures Date Procedure Procedure Detail Performing Clinician Start: 09-04-[address] Rainer Palumbo MD Work Phone: Start: 08-18-[address] Rainer Palumbo MD Work Phone: Start: 01-22-2023 Radiologic examinati on of knee Dr. Rainer Palumbo Work Phone: Plan of Treatment Date Care Activity Detail Author Start: 01-22-2023 Patient referral [facility] Work Phone: Patient referral [facility] Work Phone: [facility] Payers Date Payer Category Payer Self-pay [id number] 2023 Private Health Insurance [id number] 2011 Private Health Insurance [id number] Unknown [id number] Unknown [id number] 2.16.8 [id number] Unknown [id number] 2.16.8 [id number] Unknown [id number] 2.16.8 [id number] Unknown [id number] 2.16.8 [id number] Unknown [id number] 2.16.8 [id number] Unknown [id number] 2.16.8 [id number] Unknown [id number] 2.16.8 [id number] Unknown [id number] 2.16.8 [id number] Unknown [id number] 2.16.8 [id number] Unknown [id number] 2.16.8 [id number] Unknown [id number] 2.16.8 [id number] Unknown [id number] 2.16.8 [id number] Unknown [id number] 2.16.8 [id number] Unknown [id number] 2.16.8 [id number] Social History Date Type Detail Facility Start: 06-02-2021 End: 01-22-2023 Tobacco smoking status NHIS Unknown if ever smoked [facility] Start: 06-28-2020 None [facility] Start: 06-28-2020 Homeless [facility] Start: 06-28-2020 Non-smoker [facility] Start: 1960 Sex Assigned At Female W [facility] Start: 12-03-2023 End: 07-08-2024 Tobacco smoking status NHIS Never smoked tobacco (finding) [facility] Goals Date Patient Goal Desired Activity /State Progress note 08-18-2024 Note Date & Type Note Facility 08-18-2024 Progress note [facility] Evaluation note 05-12-2024 Note Date & Type Note Facility 05-12-2024 Evaluation note Diagnosis Onset Date Resolution Back pain acute May 12 9:52am Segmental and somatic dysfunction of cervical region acute May 12, 2024 9:52am Segmental and somatic dysfunction of lumbar region acute May 12, 2024 9:52am Segmental and somatic dysfunction of pelvic region acute May 12, 2024 9:52am Segmental and somatic dysfunction of thoracic region acute May 12, 2024 9:52am Compression fx, thoracic spine chronic May 12, 2024 9:52am Back pain acute June 10 9:25am Segmental and somatic dysfunction of cervical region acute June 10, 2024 9:25am Segmental and somatic dysfunction of lumbar region acute June 10, 2024 9:25am Segmental and somatic dysfunction of pelvic region acute June 10, 2024 9:25am Segmental and somatic dysfunction of thoracic region acute June 10, 2024 9:25am Compression fx, thoracic spine chronic June 10, 2024 9:25am Back pain acute July 08, 2024 9:52am Segmental and somatic dysfunction of cervical region acute July 08, 2024 9 :52am Segmental and somatic dysfunction of lumbar region acute July 08, 2024 9 :52am Segmental and somatic dysfunction of pelvic region acute July 08, 2024 9 :52am Segmental and somatic dysfunction of thoracic region acute July 08, 2024 9 :52am Compression fx, thoracic spine chronic July 08, 2024 9 :52am UTI (urinary tract infection) acute August 18, 2024 12:06pm [facility] Work Phone: Evaluation note 05-12-2024 Note Date & Type Note Facility 05-12-2024 Evaluation note Diagnosis Onset Date Resolution Back pain acute May 12 9:52am Segmental and somatic dysfunction of cervical region acute May 12, 2024 9:52am Segmental and somatic dysfunction of lumbar region acute May 12, 2024 9:52am Segmental and somatic dysfunction of pelvic region acute May 12, 2024 9:52am Segmental and somatic dysfunction of thoracic region acute May 12, 2024 9:52am Compression fx, thoracic spine chronic May 12, 2024 9:52am Back pain acute June 10 9:25am Segmental and somatic dysfunction of cervical region acute June 10, 2024 9:25am Segmental and somatic dysfunction of lumbar region acute June 10, 2024 9:25am Segmental and somatic dysfunction of pelvic region acute June 10, 2024 9:25am Segmental and somatic dysfunction of thoracic region acute June 10, 2024 9:25am Compression fx, thoracic spine chronic June 10, 2024 9:25am Back pain acute July 08, 2024 9:52am Segmental and somatic dysfunction of cervical region acute July 08, 2024 9 :52am Segmental and somatic dysfunction of lumbar region acute July 08, 2024 9 :52am Segmental and somatic dysfunction of pelvic region acute July 08, 2024 9 :52am Segmental and somatic dysfunction of thoracic region acute July 08, 2024 9 :52am Compression fx, thoracic spine chronic July 08, 2024 9 :52am UTI (urinary tract infection) acute August 18, 2024 12:06pm Increased urinary frequency acute September 04, 2024 7:57am [facility] Work Phone: Evaluation note 03-11-2024 Note Date & Type Note Facility 03-11-2024 Evaluation note Diagnosis Onset Date Resolution Back pain acute March 11, 2024 12:58pm Segmental and somatic dysfunction of cervical region acute March 11 12:58pm Segmental and somatic dysfunction of lumbar region acute March 11 12:58pm Segmental and somatic dysfunction of pelvic region acute March 11 12:58pm Segmental and somatic dysfunction of thoracic region acute March 11 12:58pm Compression fx, thoracic spine chronic March 11 12:58pm Back pain acute May 12 9:52am Segmental and somatic dysfunction of cervical region acute May 12, 2024 9:52am Segmental and somatic dysfunction of lumbar region acute May 12, 2024 9:52am Segmental and somatic dysfunction of pelvic region acute May 12, 2024 9:52am Segmental and somatic dysfunction of thoracic region acute May 12, 2024 9:52am Compression fx, thoracic spine chronic May 12, 2024 9:52am Back pain acute June 10 9:25am Segmental and somatic dysfunction of cervical region acute June 10, 2024 9:25am Segmental and somatic dysfunction of lumbar region acute June 10, 2024 9:25am Segmental and somatic dysfunction of pelvic region acute June 10, 2024 9:25am Segmental and somatic dysfunction of thoracic region acute June 10, 2024 9:25am Compression fx, thoracic spine chronic June 10, 2024 9:25am Back pain acute July 08, 2024 9:52am Segmental and somatic dysfunction of cervical region acute July 08, 2024 9 :52am Segmental and somatic dysfunction of lumbar region acute July 08, 2024 9 :52am Segmental and somatic dysfunction of pelvic region acute July 08, 2024 9 :52am Segmental and somatic dysfunction of thoracic region acute July 08, 2024 9 :52am Compression fx, thoracic spine chronic July 08, 2024 9 :52am [facility] Work Phone: Evaluation note Note Date & Type Note Facility Evaluation note Diagnosis Onset Date Neck pain acute Segmental and somatic dysfun ction of cervical region acute Segmental and somatic dysfun ction of lumbar region acute Segmental and somatic dysfun ction of pelvic region acute Segmental and somatic dysfun ction of thoracic region acute Neck pain acute Segmental and somatic dysfun ction of cervical region acute Segmental and somatic dysfun ction of lumbar region acute Segmental and somatic dysfun ction of pelvic region acute Segmental and somatic dysfun ction of thoracic region acute Neck pain acute Segmental and somatic dysfun ction of cervical region acute Segmental and somatic dysfun ction of lumbar region acute Segmental and somatic dysfun ction of pelvic region acute Segmental and somatic dysfun ction of thoracic region acute Back pain acute Segmental and somatic dysfun ction of cervical region acute Segmental and somatic dysfun ction of lumbar region acute Segmental and somatic dysfun ction of pelvic region acute Segmental and somatic dysfun ction of thoracic region acute Compression fx, thoracic spine [facility] Work Phone: Evaluation note Note Date & Type Note Facility Evaluation note Diagnosis Onset Date Back pain acute Segmental and somatic dysfun ction of cervical region acute Segmental and somatic dysfun ction of lumbar region acute Segmental and somatic dysfun ction of pelvic region acute Segmental and somatic dysfun ction of thoracic region acute Compression fx, thoracic spine chronic Back pain acute Segmental and somatic dysfun ction of cervical region acute Segmental and somatic dysfun ction of lumbar region acute Segmental and somatic dysfun ction of pelvic region acute Segmental and somatic dysfun ction of thoracic region acute Compression fx, thoracic spine chronic Back pain acute Segmental and somatic dysfun ction of cervical region acute Segmental and somatic dysfun ction of lumbar region acute Segmental and somatic dysfun ction of pelvic region acute Segmental and somatic dysfun ction of thoracic region acute Compression fx, thoracic spine [facility] Work Phone: Evaluation note Note Date & Type Note Facility Evaluation note Diagnosis Onset Date Back pain acute Segmental and somatic dysfun ction of cervical region acute Segmental and somatic dysfun ction of lumbar region acute Segmental and somatic dysfun ction of pelvic region acute Segmental and somatic dysfun ction of thoracic region acute Compression fx, thoracic spine chronic Back pain acute Segmental and somatic dysfun ction of cervical region acute Segmental and somatic dysfun ction of lumbar region acute Segmental and somatic dysfun ction of pelvic region acute Segmental and somatic dysfun ction of thoracic region acute Compression fx, thoracic spine chronic Back pain acute Segmental and somatic dysfun ction of cervical region acute Segmental and somatic dysfun ction of pelvic region acute Segmental and somatic dysfun ction of thoracic region acute Compression fx, thoracic spine chronic [facility] Work Phone: Evaluation note Note Date & Type Note Facility Evaluation note Diagnosis Onset Date Back pain acute Segmental and somatic dysfun ction of cervical region acute Segmental and somatic dysfun ction of lumbar region acute Segmental and somatic dysfun ction of pelvic region acute Segmental and somatic dysfun ction of thoracic region acute Compression fx, thoracic spine chronic Back pain acute Segmental and somatic dysfun ction of cervical region acute Segmental and somatic dysfun ction of lumbar region acute Segmental and somatic dysfun ction of pelvic region acute Segmental and somatic dysfun ction of thoracic region acute Compression fx, thoracic spine chronic Back pain acute Segmental and somatic dysfun ction of cervical region acute Segmental and somatic dysfun ction of lumbar region acute Segmental and somatic dysfun ction of pelvic region acute Segmental and somatic dysfun ction of thoracic region acute Compression fx, thoracic spine chronic Right knee sprain acute [facility] Work Phone: Progress note Note Date & Type Note Facility Progress note Note Date/Time August 18, 2024 1:03p m [facility] [address] [place] [address] OFFICE VISIT Date of Service: 08/18/24 MR#: [id number] Acct: [id number] Patient: ISRA JAVED Rep #: [id number] : 1960 Provider: GURU Frias Age/Sex: 63/F Location: [facility] Status: Signed Intake Vital Signs 12/03/23 11:03 08/18/24 12:58 Height 5 ft 1 in 5 ft 1 in BP 110/70 Blood Pressure Location Lt brachial Position Sitting Respiration 16 Pulse 76 Pulse Source Monitor Temp 98.2 F Temp Source Oral Pulse Oximetry (%) 97 Intake Visit Reasons: CONCERN FOR UTI Chief Complaint: Concern for UTI Cra Officer Required: No Accompanied by: Self Is patient in pain?: No Allergies No Known Allergies Allergy (Verified 07/08/24 10:08) Have you fallen in the past year?: No Nurse's Note: complaint of a tingling sensation near bladder before/during urination. Patient concerned for UTI. [facility] Medical History Right knee sprain Right foot sprain Right ankle sprain History of Elbow Fracture History of humerus fracture History of compression fracture of vertebral column Surgical History History of thyroidectomy, subtotal History of surgical repair of Humerus Social History Smoking Status: Never smoker what type of physical activity do you participate in: yoga frequency: 3-4 times per week HPI HPI Chief Complaint: Concern for UTI Details: ISRA JAVED, is a 63 F who presents to the office today for pelvic discomfort. She states that she just has a weird feeling on and off in her pelvic area. Sheis concerned about a UTI. She does not have any back aches. She does not have any fever or chills. She does not have any burning, itching or foul-smelling urine. She does not have any blood in your urine. She has never had a UTI before. ROS Const Constitutional: Positive for other (ROS negative x 6 except what is described above) Exam Const General: cooperative, healthy appearing and no acute distress Nutritional Appearance: average body habitus Orientation: alert, awake and oriented x3 Resp Effort & Inspection: normal respiratory effort and able to speak in complete sentences Cardio Rate: regular rate Pulses: radial pulses present Skin General: no rashes or lesions noted Neuro General: patient alert, patient awake and patient oriented x3 Cognition: normal cognition Speech: speech normal Psych Appearance: grossly normal Mental Status: mental status grossly normal Mood: congruent mood Affect: normal affect Speech and Movement: speech and movement normal Attitude: cooperative Coding Level of Care Code Off vis,est,level 3 Diagnoses UTI (urinary tract infection) N39.0 Assessment and Plan Assessment and Plan (1) UTI (urinary tract infection): Status: Acute Plan: Urine dip is positive. Will send urine out for culture. Will start patient patient on Macrobid. Will call patient back with culture results. Patient advised if not feeling any better she should to contact PCP Orders: Orders POC Urinalysis Dip (Clinic) Today R10.2 - Pelvic and perineal pain Culture, Urine Today R82.90 - Unspecified abnormal findings in urine Medications: New nitrofurantoin monohyd/m-cryst 100 mg (Macrobid) must administer with a meal/food 100 mg PO Q12H 5 days 10 caps 0RF Plan Details Goals & Barriers: Goals Decrease spasm Decrease trigger pts Improve ROM Barriers Compression fx Clinical Quality Measures Falls Risk Screening/Assistive Devices Have you fallen in the past year?: No 08/18/24 1303 <Electronically signed by Cony Sidhu> Date _ Cony GARVEY Cosigner Signature: Date (if applicable) CC: ~ [facility] Work Phone: Reason for referral (narrative) Note Date & Type Note Facility Reason for referral (narrative) No reason for referral information available [facility] Work Phone: Chief Complaint and Reason for Visit Chief Complaint Back pain Back pain Back pain Back pain CALCIFIC TENDONITIS LEFT SHOULDER. RX HERE Reason for Visit Neck pain Segmental and somatic dysfunction of cervical region Segmental and somatic dysfunction of lumbar region Segmental and somatic dysfunction of pelvic region Segmental and somatic dysfunction of thoracic region Neck pain Segmental and somatic dysfunction of cervical region Segmental and somatic dysfunction of lumbar region Segmental and somatic dysfunction of pelvic region Segmental and somatic dysfunction of thoracic region Neck pain Segmental and somatic dysfunction of cervical region Segmental and somatic dysfunction of lumbar region Segmental and somatic dysfunction of pelvic region Segmental and somatic dysfunction of thoracic region Back pain Segmental and somatic dysfunction of cervical region Segmental and somatic dysfunction of lumbar region Segmental and somatic dysfunction of pelvic region Segmental and somatic dysfunction of thoracic region Compression fx, thoracic spine Chief Complaint Back pain Back pain Back pain Reason for Visit Back pain Segmental and somatic dysfunction of cervical region Segmental and somatic dysfunction of lumbar region Segmental and somatic dysfunction of pelvic region Segmental and somatic dysfunction of thoracic region Compression fx, thoracic spine Back pain Segmental and somatic dysfunction of cervical region Segmental and somatic dysfunction of lumbar region Segmental and somatic dysfunction of pelvic region Segmental and somatic dysfunction of thoracic region Compression fx, thoracic spine Back pain Segmental and somatic dysfunction of cervical region Segmental and somatic dysfunction of lumbar region Segmental and somatic dysfunction of pelvic region Segmental and somatic dysfunction of thoracic region Compression fx, thoracic spine Chief Complaint R KNEE RX HERE Back pain Back pain Back pain Reason for Visit Back pain Segmental and somatic dysfunction of cervical region Segmental and somatic dysfunction of lumbar region Segmental and somatic dysfunction of pelvic region Segmental and somatic dysfunction of thoracic region Compression fx, thoracic spine Back pain Segmental and somatic dysfunction of cervical region Segmental and somatic dysfunction of lumbar region Segmental and somatic dysfunction of pelvic region Segmental and somatic dysfunction of thoracic region Compression fx, thoracic spine Back pain Segmental and somatic dysfunction of cervical region Segmental and somatic dysfunction of pelvic region Segmental and somatic dysfunction of thoracic region Compression fx, thoracic spine Chief Complaint Back pain Back pain Back pain RIGHT KNEE/INJURY EORDER R KNEE RX HERE Reason for Visit Back pain Segmental and somatic dysfunction of cervical region Segmental and somatic dysfunction of lumbar region Segmental and somatic dysfunction of pelvic region Segmental and somatic dysfunction of thoracic region Compression fx, thoracic spine Back pain Segmental and somatic dysfunction of cervical region Segmental and somatic dysfunction of lumbar region Segmental and somatic dysfunction of pelvic region Segmental and somatic dysfunction of thoracic region Compression fx, thoracic spine Back pain Segmental and somatic dysfunction of cervical region Segmental and somatic dysfunction of lumbar region Segmental and somatic dysfunction of pelvic region Segmental and somatic dysfunction of thoracic region Compression fx, thoracic spine Right knee sprain Chief Complaint Admit Date Back pain March 11, 2024 1 2:58pm BACK PAIN May 12, 2024 9:5 2am BACK PAIN June 10, 2024 9:2 5am BACK PAIN July 08, 2024 9:52a m Reason for Visit Admit Date Back pain March 11, 2024 1 2:58pm Segmental and somatic dysfunction of cer vical region March 11, 2024 12:58pm Segmental and somatic dysfunction of lum bar region March 11, 2024 12:58pm Segmental and somatic dysfunction of pel patrice region March 11, 2024 12:58pm Segmental and somatic dysfunction of tho racic region March 11, 2024 12:58pm Compression fx, thoracic spine February 132024 12:58pm Back pain May 12, 2024 9:5 2am Segmental and somatic dysfunction of cer vical region May 12, 2024 9:52am Segmental and somatic dysfunction of lum bar region May 12, 2024 9:52am Segmental and somatic dysfunction of pel patrice region May 12, 2024 9:52am Segmental and somatic dysfunction of tho racic region May 12, 2024 9:52am Compression fx, thoracic spine April 9:52am Back pain June 10, 2024 9:2 5am Segmental and somatic dysfunction of cer vical region June 10, 2024 9:25am Segmental and somatic dysfunction of lum bar region June 10, 2024 9:25am Segmental and somatic dysfunction of pel patrice region June 10, 2024 9:25am Segmental and somatic dysfunction of tho racic region June 10, 2024 9:25am Compression fx, thoracic spine May 9:25am Back pain July 08, 2024 9:52a m Segmental and somatic dysfunction of cer vical region July 08, 2024 9:52am Segmental and somatic dysfunction of lum bar region July 08, 2024 9:52am Segmental and somatic dysfunction of pel patrice region July 08, 2024 9:52am Segmental and somatic dysfunction of tho racic region July 08, 2024 9:52am Compression fx, thoracic spine July 08, 2024 9:52am Chief Complaint Admit Date BACK PAIN May 12, 2024 9:5 2am BACK PAIN June 10, 2024 9:2 5am BACK PAIN July 08, 2024 9:52a m CONCERN FOR UTI August 18, 2024 12:06 pm Reason for Visit Admit Date Back pain May 12, 2024 9:5 2am Segmental and somatic dysfunction of cer vical region May 12, 2024 9:52am Segmental and somatic dysfunction of lum bar region May 12, 2024 9:52am Segmental and somatic dysfunction of pel patrice region May 12, 2024 9:52am Segmental and somatic dysfunction of tho racic region May 12, 2024 9:52am Compression fx, thoracic spine April 9:52am Back pain June 10, 2024 9:2 5am Segmental and somatic dysfunction of cer vical region June 10, 2024 9:25am Segmental and somatic dysfunction of lum bar region June 10, 2024 9:25am Segmental and somatic dysfunction of pel patrice region June 10, 2024 9:25am Segmental and somatic dysfunction of tho racic region June 10, 2024 9:25am Compression fx, thoracic spine May 9:25am Back pain July 08, 2024 9:52a m Segmental and somatic dysfunction of cer vical region July 08, 2024 9:52am Segmental and somatic dysfunction of lum bar region July 08, 2024 9:52am Segmental and somatic dysfunction of pel patrice region July 08, 2024 9:52am Segmental and somatic dysfunction of tho racic region July 08, 2024 9:52am Compression fx, thoracic spine July 08, 2024 9:52am UTI (urinary tract infection) August 18, 2024 12:06pm Chief Complaint Admit Date BACK PAIN May 12, 2024 9:5 2am BACK PAIN June 10, 2024 9:2 5am BACK PAIN July 08, 2024 9:52a m CONCERN FOR UTI August 18, 2024 12:06 pm CONCERN FOR UTI September 04, 2024 7:57 am Reason for Visit Admit Date Back pain May 12, 2024 9:5 2am Segmental and somatic dysfunction of cer vical region May 12, 2024 9:52am Segmental and somatic dysfunction of lum bar region May 12, 2024 9:52am Segmental and somatic dysfunction of pel patrice region May 12, 2024 9:52am Segmental and somatic dysfunction of tho racic region May 12, 2024 9:52am Compression fx, thoracic spine April 9:52am Back pain June 10, 2024 9:2 5am Segmental and somatic dysfunction of cer vical region June 10, 2024 9:25am Segmental and somatic dysfunction of lum bar region June 10, 2024 9:25am Segmental and somatic dysfunction of pel patrice region June 10, 2024 9:25am Segmental and somatic dysfunction of tho racic region June 10, 2024 9:25am Compression fx, thoracic spine May 9:25am Back pain July 08, 2024 9:52a m Segmental and somatic dysfunction of cer vical region July 08, 2024 9:52am Segmental and somatic dysfunction of lum bar region July 08, 2024 9:52am Segmental and somatic dysfunction of pel patrice region July 08, 2024 9:52am Segmental and somatic dysfunction of tho racic region July 08, 2024 9:52am Compression fx, thoracic spine July 08, 2024 9:52am UTI (urinary tract infection) August 18, 2024 12:06pm Increased urinary frequency September 04 7:57am Advance Directives No Advanced Directives Records Found Advance Directive Response Recorded Date/ Time Advance Directives No April 14 11:47am Living Will No April 14, 2020 11:47am Power of Steel 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 Rainer Palumbo MD Family Provider Active Dr. Rainer Palumbo MD Primary Care Provider Active Team Status: Inactive Member Role Status Dates Dr. Rainer Palumbo MD Primary Care Provider, Referring Provider Active Dr. Thelma Raymundo DC Attending Provider Active Team Status: Inactive Member Role Status Dates Dr. Rainer Palumbo MD Primary Care Provider, Attending Provider Active Team Status: Inactive Member Role Status Dates Dr. Rainer Palumbo MD Primary Care Provider Active GURU Allen Attending Provider, Referring Pr ovider Active Team Status: Inactive Member Role Status Dates Dr. Rainer Palumbo MD Primary Care Provider, Referring Provider Active GURU Allen Attending Provider Active Team Status: Active Member Role Status Dates Dr. Rainer Palumbo MD Primary Care Provider Active GURU Allen Attending Provider, Referring Pr ovider Active Team Status: Inactive Member Role Status Dates Dr. Rainer Palumbo MD Primary Care Provider Active Start: March 11, 2024 End: March 11, 2024 Dr. Rainer Palumbo MD Referring Provider Active Start: March 11, 2024 End: March 11, 2024 Dr. Thelma Raymundo DC Attending Provider Active S tart: March 11, 2024 End: March 11, 2024 Team Status: Inactive Member Role Status Dates Dr. Rainer Palumbo MD Primary Care Provider Active Start: May 12, 2024 End: May 12, 2024 Dr. Rainer Palumbo MD Referring Provider Active Start: May 12, 2024 End: May 12, 2024 Dr. Thelma Raymundo DC Attending Provider Active S tart: May 12, 2024 End: May 12, 2024 Team Status: Inactive Member Role Status Dates Dr. Rainer Palumbo MD Primary Care Provider Active Start: June 10, 2024 End: June 10, 2024 Dr. Rainer Palumbo MD Referring Provider Active Start: June 10, 2024 End: June 10, 2024 Dr. Thelma Raymundo DC Attending Provider Active S tart: June 10, 2024 End: June 10, 2024 Team Status: Inactive Member Role Status Dates Dr. Rainer Palumbo MD Primary Care Provider Active Start: July 08, 2024 End: July 08, 2024 Dr. Rainer Palumbo MD Referring Provider Active Start: July 08, 2024 End: July 08, 2024 Dr. Thelma Raymundo DC Attending Provider Active S tart: July 08, 2024 End: July 08, 2024 Team Status: Active Member Role/Relationship Status Dates Dr. Rainer Palumbo MD Family Provider Active Dr. Rainer Palumbo MD Primary Care Provider Active Team Status: Inactive Member Role/Relationship Status Dates Dr. Rainer Palumbo MD Primary Care Provider Active Start: May 12, 2024 End: May 12, 2024 Dr. Rainer Palumbo MD Referring Provider Active Start: May 12, 2024 End: May 12, 2024 Dr. Thelma Raymundo DC Attending Provider Active S tart: May 12, 2024 End: May 12, 2024 Team Status: Inactive Member Role/Relationship Status Dates Dr. Rainer Palumbo MD Primary Care Provider Active Start: June 10, 2024 End: June 10, 2024 Dr. Rainer Palumbo MD Referring Provider Active Start: June 10, 2024 End: June 10, 2024 Dr. Thelma Raymundo DC Attending Provider Active S tart: June 10, 2024 End: June 10, 2024 Team Status: Inactive Member Role/Relationship Status Dates Dr. Rainer Palumbo MD Primary Care Provider Active Start: July 08, 2024 End: July 08, 2024 Dr. Rainer Palumbo MD Referring Provider Active Start: July 08, 2024 End: July 08, 2024 Dr. Thelma Raymundo DC Attending Provider Active S tart: July 08, 2024 End: July 08, 2024 Team Status: Inactive Member Role/Relationship Status Dates Dr. Rainer Palumbo MD Primary Care Provider Active Start: August 18, 2024 End: August 18, 2024 Dr. Rainer Palumbo MD Referring Provider Active Start: August 18, 2024 End: August 18, 2024 Cony GARVEY PA Attending Provider Active Start: August 18, 2024 End: August 18, 2024 Team Status: Inactive Member Role/Relationship Status Dates Dr. Rainer Palumbo MD Primary Care Provider Active Start: August 18, 2024 End: August 18, 2024 Cony GARVEY PA Attending Provider Active Start: August 18, 2024 End: August 18, 2024 Cony GARVEY PA Referring Provider Active Start: August 18, 2024 End: August 18, 2024 Team Status: Inactive Member Role/Relationship Status Dates Dr. Rainer Palumbo MD Primary Care Provider Active Start: September 04, 2024 End: September 04, 2024 Dr. Rainer Palumbo MD Referring Provider Active Start: September 04, 2024 End: September 04, 2024 GURU Willis Attending Provider Active Sta rt: September 04, 2024 End: September 04, 2024 Team Status: Inactive Member Role/Relationship Status Dates Dr. Rainer Palumbo MD Primary Care Provider Active Start: September 04, 2024 End: September 04, 2024 GURU Willis Attending Provider Active Sta rt: September 04, 2024 End: September 04, 2024 GURU Willis Referring Provider Active Sta rt: September 04, 2024 End: September 04, 2024 INFORMATION SOURCE (unrecogn ized section and content) DATE CREATED AUTHOR 09/11/2024 [facility] FOR RECORDS PERTAINING TO PATIENTS WHO ARE OR HAVE BEEN ENROLLED IN A CHEMICAL DEPENDENCY/SUBSTANCEABUSE PROGRAM, SOME INFORMATION MAY BE OMITTED. This clinical summary was aggregated from multiple sources. Caution should be exercised in using it in the provision of clinical care. This summary normalizes information from multiple sources, and as a consequence, information in this document may materially change the coding, format and clinical context of patient data. In addition, data may be omitted in some cases. CLINICAL DECISIONS SHOULD BE BASED ON THE PRIMARY CLINICAL RECORDS. [facility]. provides no warranty or guarantee of the accuracy or completeness of information in this document.
== END 2025-01-27 10:27 | disposition home or self-care (01) ==
PROVIDERS: Emergency Provider Emergency Medicine; PCP Family Medicine; Visit Provider Emergency Medicine
DX: R42 Dizziness and giddiness (principal); I10 Essential (primary) hypertension
CPT/HCPCS: 70450; 71046; 80048; 84484; 85025; 93005; 99284; A4216